=== PATIENT | female | born 1955 | race American Indian/Alaskan Native ===

== ENCOUNTER 2018-11-15 15:30 | Inpatient (IN) | payer MEDICARE ==
[2018-11-15 16:11] LABS: Basophils # (Auto) 0.1 K/mm3 (0.0-0.1); Basophils % (Auto) 1.4 % (0.0-1.8); Eosinophils % (Auto) 0.1 % (0.0-4.3); Hemoglobin 14.2 gm/dl (10.1-14.3); Lymphocytes % (Auto) 19.5 % (13.4-35.0); Mean Corpuscular HGB Conc 35 % (30-34); Mean Corpuscular Volume 90 fl (79-97); Monocytes # (Auto) 0.8 K/mm3 (0.0-0.8); Monocytes % (Auto) 7.7 % (0.0-7.3); Platelet Count 337 K/mm3 (140-440); Red Blood Count 4.55 M/mm3 (3.65-5.03); Red Cell Distribution Width 13.3 % (13.2-15.2)
--- NOTE | 2018-11-15 16:22 | Emergency Department Report ---
ED Shortness of Breath HPI - General Chief Complaint: Dyspnea/Respdistress Stated Complaint: HEART PATIENT/SOB Time Seen by Provider: 11/15/18 16:02 Source: patient Mode of arrival: Wheelchair Limitations: No Limitations - History of Present Illness Initial Comments: This is 61-year-old female that presents emergent complaints of dizziness, chest pain, shortness of breath and palpitations. Patient states is normal for 1 week. Patient states over this past week she's had 2 syncopal episodes. Patient states she has a history of ME and CHF. Patient is noncompliant with all of her medications. They states no medications taken this time is antidep ressant. Patient states she has nitroglycerin, nebs/inhaler, aspirin that she does not take. Patient states her shortness of breath is better with rest and worse with exertion. Patient states her chest pain is better with rest and worse with exertion. MD Complaint: shortness of breath, chest pain -: Sudden Severity: severe Pain Scale: 3 Quality: dull, aching Consistency: intermittent Improves With: oxygen, rest, upright position Worsens With: lying flat, exertion Known History Of: asthma, congestive heart failure Context: medication noncompliance Associated Symptoms: chest pain, pain with inspiration, cough, orhopnia, palpitations, syncope Treatments Prior to Arrival: none - Related Data Home Oxygen Therapy: No Home Medications Medication Instructions Recorded Confirmed Last Taken FLUoxetine HCL [Fluoxetine HCl] 40 mg PO DAILY 11/16/18 11/16/18 Unknown Allergies Allergy/AdvReac Type Severity Reaction Status Date / Time No Known Allergies Allergy Unverified 11/15/18 15:43 ED Review of Systems ROS: Stated complaint: HEART PATIENT/SOB Other details as noted in HPI Constitutional: denies: chills, fever Eyes: denies: eye pain, eye discharge, vision change ENT: denies: ear pain, throat pain Respiratory: shortness of breath, SOB with exertion, SOB at rest. denies: wheezing Cardiovascular: chest pain, palpitations Endocrine: no symptoms reported Gastrointestinal: denies: abdominal pain, nausea, diarrhea Genitourinary: denies: urgency, dysuria, discharge Musculoskeletal: denies: back pain, joint swelling, arthralgia Skin: denies: rash, lesions Neurological: vertigo. denies: headache, weakness, paresthesias Psychiatric: denies: anxiety, depression Hematological/Lymphatic: denies: easy bleeding, easy bruising ED Past Medical Hx - Past Medical History Previous Medical History?: Yes Hx Heart Attack/AMI: Yes (X2) Hx Asthma: Yes Additional medical history: HARD OF HEARING - Surgical History Past Surgical History?: Yes Additional Surgical History: HEART CATH - Family History Family history: no significant - Social History Smoking Status: Current Every Day Smoker Substance Use Type: None - Medications Home Medications: Home Medications Medication Instructions Recorded Confirmed Last Taken Type FLUoxetine HCL [Fluoxetine HCl] 40 mg PO DAILY 11/16/18 11/16/18 Unknown History ED Physical Exam - General Limitations: No Limitations General appearance: alert, in no apparent distress - Head Head exam: Present: atraumatic, normocephalic - Eye Eye exam: Present: normal appearance - ENT ENT exam: Present: mucous membranes dry - Neck Neck exam: Present: normal inspection - Respiratory Respiratory exam: Present: normal lung sounds bilaterally. Absent: respiratory distress - Cardiovascular Cardiovascular Exam: Present: regular rate, normal rhythm. Absent: systolic murmur, diastolic murmur, rubs, gallop - GI/Abdominal GI/Abdominal exam: Present: soft, normal bowel sounds - Extremities Exam Extremities exam: Present: normal inspection - Back Exam Back exam: Present: normal inspection - Neurological Exam Neurological exam: Present: alert, oriented X3 - Psychiatric Psychiatric exam: Present: normal affect, normal mood - Skin Skin exam: Present: warm, dry, intact, normal color. Absent: rash ED Course Vital Signs 11/15/18 11/15/18 11/15/18 15:38 16:22 16:30 Temperature 98.8 F Pulse Rate 121 H 117 H Respiratory 20 13 Rate Blood Pressure 159/102 169/106 O2 Sat by Pulse 98 99 99 Oximetry 11/15/18 11/15/18 11/15/18 16:46 17:00 19:08 Temperature Pulse Rate 110 H 113 H 110 H Respiratory 11 L 16 14 Rate Blood Pressure 169/106 169/106 169/106 O2 Sat by Pulse 100 99 Oximetry 11/15/18 11/15/18 11/15/18 19:16 19:45 20:00 Temperature Pulse Rate 101 H 104 H Respiratory 16 18 16 Rate Blood Pressure 169/106 139/98 O2 Sat by Pulse 99 100 99 Oximetry 11/15/18 11/15/18 11/15/18 20:16 20:18 20:20 Temperature Pulse Rate 108 H 106 H 107 H Respiratory 16 15 16 Rate Blood Pressure 139/98 139/98 139/98 O2 Sat by Pulse 99 99 99 Oximetry 11/15/18 11/15/18 11/15/18 20:22 20:24 20:26 Temperature Pulse Rate 107 H 106 H 107 H Respiratory 14 21 11 L Rate Blood Pressure 139/98 139/98 117/71 O2 Sat by Pulse 99 98 98 Oximetry 11/15/18 11/15/18 11/15/18 20:30 20:40 20:50 Temperature Pulse Rate 108 H 105 H 114 H Respiratory 15 21 10 L Rate Blood Pressure 117/71 117/71 117/71 O2 Sat by Pulse 98 99 98 Oximetry - Reevaluation(s) Reevaluation #1: discussed all results with patient. Patient voiced understanding of results. Patient admitted to the hospitalist service. Patient agrees with plan of care and admission. 11/15/18 17:59 - Consultations Consultation #1: Hospitalist consulted for admission. Hospital service to admit patient and assume care of patient. 11/15/18 18:06 ED Medical Decision Making - Lab Data Result diagrams: 11/15/18 16:00 11/15/18 16:00 - EKG Data -: EKG Interpreted by Me EKG shows normal: sinus rhythm, axis, intervals, QRS complexes, ST-T waves Rate: tachycardia - Radiology Data Radiology results: report reviewed, image reviewed interpreted by me: Chest x-ray normal limits Negative CTA for PE. Chest x-ray is normal. - Medical Decision Making is a 63-year-old female that presents emergency room multiple complaints. This complaints including chest pain, shortness of breath, dizziness, syncope. Patient's initial cardiac workup was negative. Patient's CT was negative. Patient's chest x-ray was negative. Patient's labs unremarkable except for hypokalemia and hyponatremia. Patient admitted to the hospitalist service for further evaluation and treatment. - Differential Diagnosis cp. acs. nstemi. sob. syncope. Critical Care Time: Yes Critical care attestation.: If time is entered above; I have spent that time in minutes in the direct care of this critically ill patient, excluding procedure time. Critical Care Time: 35 minutes ED Disposition Clinical Impression: SOB (shortness of breath), Dizziness, Hyponatremia, Hypokalemia Chest pain Qualifiers: Chest pain type: unspecified Qualified Code(s): R07.9 - Chest pain, unspecified Syncope Qualifiers: Syncope type: unspecified Qualified Code(s): R55 - Syncope and collapse Disposition: DC09 OP ADMIT IP TO THIS HOSP Is pt being admited?: Yes Does the pt Need Aspirin: No Condition: Critical Time of Disposition: 18:08
[2018-11-15 16:40] LABS: BUN/Creatinine Ratio 24; Blood Urea Nitrogen 12 mg/dL (7-17); Calcium 9.5 mg/dL (8.4-10.2); Hemolysis Index 2
[2018-11-15 16:53] LABS: Alanine Aminotransferase 13 units/L (7-56); Albumin 4.6 g/dL (3.9-5)
[2018-11-15 16:54] LABS: Bilirubin,Direct < 0.2 mg/dL (0-0.2)
--- NOTE | 2018-11-15 16:59 | XRay Report ---
FINAL REPORT EXAM: XR CHEST 1V AP HISTORY: Shortness of breath TECHNIQUE: Frontal chest radiograph. PRIORS: None. FINDINGS: Aortic calculi are seen. The left lateral costophrenic angle was not completely included on the image . The cardiomediastinal silhouette is normal. No focal consolidation. The lungs are hyperinflated. No pleural effusion. No pneumothorax. No acute osseous abnormality. IMPRESSION: No acute cardiopulmonary process. Findings of COPD.
--- NOTE | 2018-11-15 17:54 | Cat Scan Report ---
FINAL REPORT PROCEDURE: CT angiogram chest with contrast. TECHNIQUE: Computerized tomographic angiography of the chest was performed after the IV injection of iodinated nonionic contrast including image processing. The image data was postprocessed using 2-dim ensional multiplanar reformatted (MPR) and 3-dimensional (MIP and/or volume rendered) techniques. HISTORY: Shortness of breath, tachycardia. COMPARISON: No prior studies are available for comparison. FINDINGS: The trachea and central bronchi appear normal. There is a tiny focal opacity in the anterior portion of the right lower lobe. This is seen on image 203 of series 3. It may represent a tiny scar or tiny nodule. It measures 4.5 millimeters. It is of doubtful clinical significance. Follow-up imaging could be done to document stability. There is some minimal scarring versus subsegmental atelectasis in the lingula. The lungs are otherwise clear and well expanded. There are no signs of pneumonia. There are no pleural effusions. The thoracic aorta has a normal caliber without evidence of dissection. The pu lmonary arteries enhance normally. There are no filling defects to indicate pulmonary embolism. There is an enlarged lymph node mass in the pretracheal region. I am uncertain if this represents a single lymph node or 2 adjacent lymph nodes. The overall size is approximately 3.4 centimeters x 1.9 centim eters in cross-section. There is no definite additional adenopathy. This enlarged lymph node is nonsp ecific. Further evaluation should be considered. The heart size is normal. The adrenal glands are not enlarged. The thoracic skeleton appears intact. IMPRESSION: No evidence of pulmonary embolism. Small nodule versus small scar in the right lower lobe. Follow-up suggested. Enlarged mediastinal lymph node or lymph node mass in the pretracheal region. Further eval uation suggested.
--- NOTE | 2018-11-15 18:00 | History and Physical Report ---
History of Present Illness Chief complaint: i cant breathe, and my chest hurts too History of present illness: 63 YO Female with SC, Asthma, CHF, Nicotine Dependence, COPD, Medication Noncompliance presents to ED for evaluation. Pt states that she has experienced shortness of breath, chest palpitations, and pain in her chest over the past 1 week, with increasing frequency of symptoms over the past 2 days. Pt also re ports two episodes of syncope. Pt states that pain is 3-6/10, intermittent, dull in nature, associated with shortness of breath, worsened with exertion, relieved with rest. Pt acknowledges Orthopnea/PND, Decreased exercise tolerance, as well as high blood pressure. Past History Past Medical History: acute SC, COPD Past Surgical History: Other (heart cath) Social history: single, smoking Family history: no significant family history (reviewed) Medications and Allergies Allergies Allergy/AdvReac Type Severity Reaction Status Date / Time No Known Allergies Allergy Unverified 11/15/18 15:43 Review of Systems Constitutional: no weight loss, no weight gain, no fever, no chills Ears, nose, mouth and throat: no ear pain, no ear discharge, no tinnitis, no decreased hearing Breasts: no change in shape, no swelling Cardiovascular: chest pain, palpitations, syncope, shortness of breath, dyspnea on exertion, paroxysmal nocturnal dyspnea, high blood pressure, decreased exercise tolerance, no orthopnea Respiratory: no cough, no cough with sputum, no excessive sputum Gastrointestinal: no vomiting, no diarrhea, no constipation Genitourinary Female: no pelvic pain, no flank pain, no menorrhagia, no dysuria, no urinary frequency, no urgency Rectal: no pain, no incontinence, no bleeding Integumentary: no rash, no pruritis, no redness, no sores, no wounds Neurological: no transient paralysis, no paralysis, no weakness, no parathesias, no numbness Psychiatric: no anxiety, no memory loss, no change in sleep habits, no sleep disturbances, no insomnia, no hypersomnia, no change in appetite Endocrine: no cold intolerance, no heat intolerance, no polyphagia, no excessive thirst, no polydipsia, no polyuria Hematologic/Lymphatic: no easy bruising, no easy bleeding, no lymphadenopathy, no lymphedema Allergic/Immunologic: no urticaria, no allergic rhinitis, no wheezing, no persistent infections, no anaphylaxis, no angioedema Exam - Constitutional Vitals: Temp Pulse Resp BP Pulse Ox 98.8 F 113 H 16 169/106 99 11/15/18 15:38 11/15/18 17:00 11/15/18 17:00 11/15/18 17:00 11/15/18 17:00 General appearance: Present: mild distress - EENT Eyes: Present: PERRL ENT: hearing intact, clear oral mucosa - Neck Neck: Present: supple, normal ROM - Respiratory Respiratory effort: labored Respiratory: bilateral: diminished, rhonchi - Cardiovascular Heart Sounds: Present: S1 & S2. Absent: rub, click - Extremities Extremities: pulses symmetrical, No edema Peripheral Pulses: within normal limits - Abdominal General gastrointestinal: Present: soft, non-tender, non-distended, normal bowel sounds Female genitourinary: Present: normal - Integumentary Integumentary: Present: clear, warm, dry - Musculoskeletal Musculoskeletal: gait normal, strength equal bilaterally - Psychiatric Psychiatric: appropriate mood/affect, intact judgment & insight - Neurologic Neurologic: CNII-XII intact, moves all extremities Results - Labs CBC & Chem 7: 11/15/18 16:00 11/15/18 16:00 Labs: Abnormal lab results 11/15/18 11/15/18 Range/Units 16:00 16:00 MCHC 35 H (30-34) % [place] % (Auto) 7.7 H (0.0-7.3) % Seg Neutrophils % 71.3 H (40.0-70.0) % Sodium 128 L (137-145) mmol/L Potassium 3.4 L (3.6-5.0) mmol/L Chloride 86.6 L (98-107) mmol/L Carbon Dioxide 21 L (22-30) mmol/L Creatinine 0.5 L (0.7-1.2) mg/dL Glucose 136 H (65-100) mg/dL Assessment and Plan - Patient Problems (1) ACS (acute coronary syndrome) Current Visit: Yes Status: Acute Plan to address problem: Admit to telemetry, serial cardiac enzymes, ekg, telemetry, stress test. cardiology consulted in ED, morphine, supplemental oxygen, nitro, aspirin (2) CHF (congestive heart failure) Current Visit: Yes Status: Acute Qualifiers: Heart failure type: systolic Heart failure chronicity: acute Qualified Code(s): I50.21 - Acute systolic (congestive) heart failure Plan to address problem: Admit to telemetry, Echo, chest x ray, bnp, d dimer, cardiology consulted in ED, strict I/O, daily weight, monitor uop q shift (3) COPD with exacerbation Current Visit: Yes Status: Acute Plan to address problem: Supplemental oxygen, nebulizer therapy, NIPPV as clinically indicated, IV steroid therapy, IV antibiotic therapy (4) Nicotine dependence Current Visit: Yes Status: Acute Qualifiers: Nicotine product type: cigarettes Plan to address problem: Smoking cessation counseling, supportive care (5) DVT prophylaxis Current Visit: Yes Status: Acute Plan to address problem: SCD to BLE while in bed.
[2018-11-15] MEDS ORDERED: BABY ASPIRIN PO STA (19:03)
[2018-11-15] MEDS ORDERED: NITROSTAT SL PRN (19:03)
[2018-11-15] MEDS ORDERED: ZOFRAN IV PRN (19:03)
[2018-11-15] MEDS ORDERED: SODIUM CHLORIDE FLUSH SYRINGE 10 ML IV PRN ×2 (19:03)
[2018-11-15] MEDS ORDERED: TYLENOL PO PRN (19:03)
[2018-11-15] MEDS ORDERED: SOLU-Medrol IV ONE (19:55)
[2018-11-15 20:04] LABS: Chol/HDL Ratio 3.09 %
[2018-11-15] MEDS: PEPCID PO SCH (22:51)
[2018-11-15] MEDS: SODIUM CHLORIDE FLUSH SYRINGE 10 ML IV SCH (22:51)
[2018-11-15] MEDS: SOLU-Medrol IV SCH (22:51)
[2018-11-16] MEDS: MORPHINE IV PRN ×2 (04:30→11:03)
[2018-11-16] MEDS: PROVENTIL IH PRN (04:44)
[2018-11-16] MEDS: HABITROL TD SCH (09:22)
[2018-11-16] MEDS: XANAX PO PRN ×2 (09:22→21:27)
[2018-11-16] MEDS: SOLU-Medrol IV SCH ×2 (11:04→21:27)
[2018-11-16] MEDS: PEPCID PO SCH ×2 (11:04→21:27)
[2018-11-16 11:21] LABS: BUN/Creatinine Ratio 16; Blood Urea Nitrogen 8 mg/dL (7-17); Calcium 9.6 mg/dL (8.4-10.2); Hemolysis Index 16
--- NOTE | 2018-11-16 11:28 | Progress Note ---
Assessment and Plan /Atypical Chest pain - Patient with a long history of atypical chest pain, - prior extensive ischemic workup including cardiac catheterization were reportedly negative. - She declines any further ischemic cardiac workup stating that she feels too weak to walk on the treadmill, and does not like the pharmacologic stress test. Cardiology therefore recommended to manage conservatively. - place on PPI for possible GERD / Palpitations - we'll get an echocardiogram for left ventricular function assessment. Monitor at tele - she may benefit from outpatient event monitor if palpitations recur. /Hyponatremia, due to dehydration, repeat BMP in the am / hypokalemia, replete /Dvt Px, SCD Brief history: 63 YO Female with ME, ?CHF, Nicotine Dependence, COPD, Medication Noncompliance presents to ED as she has experienced shortness of breath, chest palpitations, and pain in her chest over the past 1 week, with increasing frequency of symptoms over the past 2 days. Subjective Date of service: 11/16/18 Interval history: Patient seen and examined cont to c/o chest pain, 2d echo pending Objective - Constitutional Vitals: Vital Signs - 12hr 11/15/18 11/16/18 11/16/18 23:38 04:50 07:17 Temperature 98.0 F 97.0 F L 97.9 F Pulse Rate 95 H 110 H 105 H Pulse Rate [ 110 H Anterior Bilateral Throughout] Respiratory 18 18 18 Rate Respiratory 22 Rate [Anterior Bilateral Throughout] Blood Pressure 131/85 95/73 98/61 O2 Sat by Pulse 99 98 97 Oximetry General appearance: Present: no acute distress, well-nourished - EENT Eyes: PERRL, EOM intact ENT: hearing intact, clear oral mucosa Ears: bilateral: normal - Neck Neck: supple, normal ROM - Respiratory Respiratory effort: normal Respiratory: bilateral: CTA - Cardiovascular Rhythm: regular Heart Sounds: Present: S1 & S2. Absent: gallop, rub Extremities: pulses intact, No edema, normal color, Full ROM - Gastrointestinal General gastrointestinal: Present: soft, non-tender, non-distended, normal bowel sounds - Integumentary Integumentary: clear, warm, dry - Musculoskeletal Musculoskeletal: 1, strength equal bilaterally - Neurologic Neurologic: moves all extremities - Psychiatric Psychiatric: memory intact, appropriate mood/affect, intact judgment & insight - Labs CBC & Chem 7: 11/15/18 16:00 11/16/18 10:26 Labs: Abnormal lab results 11/15/18 11/15/18 11/15/18 Range/Units 16:00 16:00 19:08 MCHC 35 H (30-34) % [place] % (Auto) 7.7 H (0.0-7.3) % Seg Neutrophils % 71.3 H (40.0-70.0) % Sodium 128 L (137-145) mmol/L Potassium 3.4 L (3.6-5.0) mmol/L Chloride 86.6 L (98-107) mmol/L Carbon Dioxide 21 L (22-30) mmol/L Creatinine 0.5 L (0.7-1.2) mg/dL Glucose 136 H (65-100) mg/dL HDL Cholesterol 62 H (40-59) mg/dL 11/16/18 Range/Units 10:26 MCHC (30-34) % [place] % (Auto) (0.0-7.3) % Seg Neutrophils % (40.0-70.0) % Sodium 136 L D (137-145) mmol/L Potassium (3.6-5.0) mmol/L Chloride 93.5 L (98-107) mmol/L Carbon Dioxide (22-30) mmol/L Creatinine 0.5 L (0.7-1.2) mg/dL Glucose 134 H (65-100) mg/dL HDL Cholesterol (40-59) mg/dL
[2018-11-16] MEDS: ZITHROMAX 500 MG in NACL 0.9% 250ML 250 ML IV SCH (11:29)
[2018-11-16] MEDS: SODIUM CHLORIDE FLUSH SYRINGE 10 ML IV SCH ×2 (11:30→21:27)
[2018-11-16] MEDS ORDERED: NON-FORMULARY (Fluoxetine Hcl [Fluoxetine Hcl] 40 MG) PO SCH (11:30)
[2018-11-16] MEDS: ASPIRIN PO SCH (12:02)
[2018-11-16] MEDS: PROzac PO SCH (12:02)
--- NOTE | 2018-11-16 13:25 | Consultation ---
History of Present Illness Consult date: 11/16/18 Consult reason: chest pain History of present illness: The patient is a 63-year-old woman with a history of chronic tobacco abuse, who presents to the hospital with complaints of one week intermittent palpitations associated with shortness of breath. She describes a sensation of "heart racing". There is no exertional chest pain, no syncope, no lower extremity edema. EKG here in the hospital some normal sinus rhythm with nonspecific ST changes. During her periods on telemetry, no significant tachycardia or bradycardia arrhythmias have been reported. She gives a history of extensive chest pain workup over the past several years, mostly at the [facility]. She describes several stress tests and echoes, and including at least one heart catheterization procedure. Following a heart cath procedure, she was told that her coronaries were completely "clean". Despite this, she still believes that her hospitalizations where due to "heart attacks". She is on no medications for coronary disease or other cardiac pathology. Past History Past Medical History: COPD Past Surgical History: Other (heart cath) Social history: single, smoking Family history: no significant family history (reviewed) Medications and Allergies Allergies Allergy/AdvReac Type Severity Reaction Status Date / Time No Known Allergies Allergy Unverified 11/15/18 15:43 Home Medications Medication Instructions Recorded Confirmed Last Taken Type FLUoxetine HCL [Fluoxetine HCl] 40 mg PO DAILY 11/16/18 11/16/18 Unknown History Active Meds: Active Medications Acetaminophen (Tylenol) 650 mg PO Q4H PRN PRN Reason: Pain MILD(1-3)/Fever >100.5/LANDRUM Albuterol (Proventil) 2.5 mg IH Q4H PRN PRN Reason: Shortness Of Breath Last Admin: 11/16/18 04:44 Dose: 2.5 mg Documented by: Albuterol/Ipratropium (Duoneb *Not For Prn Use*) 1 ampul IH Q6HRT RYLEY Alprazolam (Xanax) 0.25 mg PO Q8H PRN PRN Reason: Anxiety Last Admin: 11/16/18 09:22 Dose: 0.25 mg Documented by: Aspirin (Aspirin) 325 mg PO QDAY RYLEY Last Admin: 11/16/18 12:02 Dose: 325 mg Documented by: Atorvastatin Calcium (Lipitor) 40 mg PO QHS [facility] Famotidine (Pepcid) 10 mg PO BID [facility] Last Admin: 11/16/18 11:04 Dose: 10 mg Documented by: Fluoxetine HCl (Prozac) 40 mg PO QDAY [facility] Last Admin: 11/16/18 12:02 Dose: 40 mg Documented by: Azithromycin 500 mg/ Sodium (Chloride) 250 mls @ 250 mls/hr IV Q24HR [facility] Last Admin: 11/16/18 11:29 Dose: 250 mls/hr Documented by: Methylprednisolone Sodium Succinate (Solu-Medrol) 40 mg IV Q12HR [facility] Last Admin: 11/16/18 11:04 Dose: 40 mg Documented by: Morphine Sulfate (Morphine) 2 mg IV Q4H PRN PRN Reason: Pain , MODERATE Last Admin: 11/16/18 11:03 Dose: 2 mg Documented by: Nicotine (Habitrol) 21 mg TD QDAY [facility] Last Admin: 11/16/18 09:22 Dose: 21 mg Documented by: Nitroglycerin (Nitrostat) 0.4 mg SL Q5M PRN PRN Reason: Chest Pain Ondansetron HCl (Zofran) 4 mg IV Q8H PRN PRN Reason: Nausea And Vomiting Last Admin: 11/16/18 04:30 Dose: 4 mg Documented by: Sodium Chloride (Sodium Chloride Flush Syringe 10 Ml) 10 ml IV BID [facility] Last Admin: 11/16/18 11:30 Dose: 10 ml Documented by: Sodium Chloride (Sodium Chloride Flush Syringe 10 Ml) 10 ml IV PRN PRN PRN Reason: LINE FLUSH Review of Systems Cardiovascular: palpitations, shortness of breath, no chest pain, no orthopnea, no rapid/irregular heart beat, no edema, no syncope, no lightheadedness Physical Examination Vital Signs Temp Pulse Resp BP Pulse Ox 98.8 F 121 H 20 159/102 98 11/15/18 15:38 11/15/18 15:38 11/15/18 15:38 11/15/18 15:38 11/15/18 15:38 General appearance: no acute distress HEENT: Positive: PERRL Neck: Positive: neck supple Cardiac: Positive: Reg Rate and Rhythm Lungs: Positive: Decreased Breath Sounds Neuro: Positive: Grossly Intact Abdomen: Positive: Soft Female genitourinary: deferred Skin: Positive: Clear Extremities: Absent: edema Results 11/15/18 16:00 11/16/18 10:26 Cardiac Enzymes 11/15/18 Range/Units 16:00 AST 16 (5-40) units/L Lipids 11/15/18 Range/Units 19:08 Triglycerides 100 (2-149) mg/dL Cholesterol 192 (50-199) mg/dL HDL Cholesterol 62 H (40-59) mg/dL Cholesterol/HDL Ratio 3.09 % CBC 11/15/18 Range/Units 16:00 WBC 10.2 (4.5-11.0) K/mm3 RBC 4.55 (3.65-5.03) M/mm3 Hgb 14.2 (10.1-14.3) gm/dl Hct 41.0 (30.3-42.9) % Plt Count 337 (140-440) K/mm3 Lymph # 2.0 (1.2-5.4) K/mm3 [place] # 0.8 (0.0-0.8) K/mm3 Eos # 0.0 (0.0-0.4) K/mm3 Baso # 0.1 (0.0-0.1) K/mm3 Comprehensive Metabolic Panel 11/15/18 11/15/18 11/16/18 Range/Units 16:00 16:00 10:26 Sodium 128 L 136 L D (137-145) mmol/L Potassium 3.4 L 3.7 (3.6-5.0) mmol/L Chloride 86.6 L 93.5 L (98-107) mmol/L Carbon Dioxide 21 L 23 (22-30) mmol/L BUN 12 8 (7-17) mg/dL Creatinine 0.5 L 0.5 L (0.7-1.2) mg/dL Glucose 136 H 134 H (65-100) mg/dL Calcium 9.5 9.6 (8.4-10.2) mg/dL Direct Bilirubin < 0.2 (0-0.2) mg/dL Indirect Bilirubin 0.2 mg/dL AST 16 (5-40) units/L ALT 13 (7-56) units/L Alkaline Phosphatase 55 (35-129) units/L Total Protein 7.4 (6.3-8.2) g/dL Albumin 4.6 (3.9-5) g/dL EKG interpretations - Telemetry EKG Rhythm: Sinus Rhythm Assessment and Plan - Patient Problems (1) Chest pain Current Visit: Yes Status: Acute Qualifiers: Chest pain type: unspecified Qualified Code(s): R07.9 - Chest pain, unspecified Plan to address problem: Patient with a long history of atypical chest pain, prior extensive ischemic workup including cardiac catheterization were reportedly negative. She declines any further ischemic cardiac workup stating that she feels too weak to walk on the treadmill, and does not like the pharmacologic stress test. We will therefore manage conservatively. (2) Palpitations Current Visit: Yes Status: Acute Plan to address problem: Patient's additional complaint of palpitations associated with shortness of breath, we'll get an echocardiogram for left ventricular function assessment. Otherwise, she may benefit from outpatient event monitor if palpitations recur.
[2018-11-16] MEDS: DUONEB *Not for PRN Use IH SCH ×2 (13:45→20:14)
--- NOTE | 2018-11-16 18:13 | Cat Scan Report ---
FINAL REPORT EXAM: CT HEAD/BRAIN WO CON HISTORY: syncope, HAD CTA CHEST W/CONTRAST LAST NIGHT. WAITED 24 HOURS TO DO HEAD. TECHNIQUE: CT of the head was performed without intravenous contrast. PRIORS: None. FINDINGS: The ventricles are normal in shape and position. The ventricles are nondilated. No intracranial hemo rrhage, mass, mass effect, midline shift or evidence of acute ischemic infarct. The basilar cisterns are patent. The paranasal sinuses are clear. The extracranial soft tissues demonstrate no abnormality. The calvar ium is intact. The orbits are intact. The mastoid air cells are clear. IMPRESSION: No acute intracranial abnormality.
[2018-11-17] MEDS: DUONEB *Not for PRN Use IH SCH ×4 (01:02→20:47)
[2018-11-17] MEDS: HABITROL TD SCH (10:30)
[2018-11-17] MEDS: SOLU-Medrol IV SCH ×2 (10:30→22:34)
[2018-11-17] MEDS: PEPCID PO SCH ×2 (10:30→22:33)
[2018-11-17] MEDS: PROzac PO SCH (10:30)
[2018-11-17] MEDS: ASPIRIN PO SCH (10:30)
[2018-11-17] MEDS: SODIUM CHLORIDE FLUSH SYRINGE 10 ML IV SCH ×2 (10:31→22:35)
[2018-11-17] MEDS: ZITHROMAX 500 MG in NACL 0.9% 250ML 250 ML IV SCH (10:40)
--- NOTE | 2018-11-17 10:57 | Progress Note ---
Addendum entered and electronically signed by NICOLLE OWENS MD 11/17/18 14:41: Conservative cardiac management, no further cardiac workup, okay for cardiac dis charge. Original Note: Assessment and Plan Atypical chest pain, prior extensive ischemic workup including cardiac catheterization were reportedly negative. Palpitations no arrhythmias seen on telemetry thus far Tobacco abuse Echocardiogram reports a normal left ventricular systolic function, ejection 60- 65%. Plan: Patient declines any further ischemic cardiac workup and does not like the pharmacologic stress test. We will, therefore, manage conservatively. Otherwise, she may benefit from outpatient event monitor if palpitations recur. Subjective Date of service: 11/17/18 Interval history: No distress noted. No cardiac complaints. No events on telemetry. Objective Vital Signs Temp Pulse Pulse Resp Resp BP Pulse Ox 11/17/18 08:35 98.5 F 128 H 18 120/77 95 11/17/18 08:15 116 H 18 11/17/18 08:03 128 H 18 98 11/17/18 04:09 98.9 F 114 H 18 124/85 99 11/17/18 01:08 118 H 18 11/17/18 01:01 110 H 18 11/16/18 23:20 98.5 F 107 H 18 122/69 94 11/16/18 22:00 18 11/16/18 20:24 120 H 18 97 11/16/18 20:14 118 H 18 11/16/18 20:07 98.9 F 115 H 18 124/86 95 11/16/18 20:00 116 H 11/16/18 15:07 98.3 F 114 H 20 142/83 98 11/16/18 13:46 109 H 18 11/16/18 12:00 103 H - Physical Examination General: No Apparent Distress HEENT: Positive: PERRL Cardiac: Positive: Reg Rate and Rhythm Neuro: Positive: Grossly Intact Abdomen: Positive: Soft Skin: Positive: Clear Extremities: Absent: edema - Labs and Meds Comprehensive Metabolic Panel 11/16/18 Range/Units 10:26 Sodium 136 L D (137-145) mmol/L Potassium 3.7 (3.6-5.0) mmol/L Chloride 93.5 L (98-107) mmol/L Carbon Dioxide 23 (22-30) mmol/L BUN 8 (7-17) mg/dL Creatinine 0.5 L (0.7-1.2) mg/dL Glucose 134 H (65-100) mg/dL Calcium 9.6 (8.4-10.2) mg/dL
[2018-11-17] MEDS: PROVENTIL IH PRN (11:50)
--- NOTE | 2018-11-17 15:49 | Discharge Summary ---
Providers - Providers Date of Admission: 11/15/18 19:03 Date of discharge: 11/17/18 Attending physician: BRANDY LOCKE 11/15/18 Consult to Cardiac Rehabilitation [CONS] Routine Reason For Exam: Phase I 11/15/18 19:04 Consult to Cardiology [CONS] Routine Consulting Provider: NICOLLE OWENS Reason For Exam: acs Primary care physician: ERLINDA BENTON Hospitalization Condition: Critical Hospital course: Brief history: 63 YO Female with [place], ?CHF, Nicotine Dependence, COPD, Medication Noncompliance presents to ED as she has experienced shortness of breath, chest palpitations, and pain in her chest over the past 1 week, with increasing frequency of symptoms over the past 2 days. Discharge diagnosis and management: /Atypical Chest pain - Patient with a long history of atypical chest pain, - prior extensive ischemic workup including cardiac catheterization were reportedly negative. - She declines any further ischemic cardiac workup stating that she feels too weak to walk on the treadmill, and does not like the pharmacologic stress test. Cardiology therefore recommended to manage conservatively. - place on PPI for possible GERD / Palpitations - we'll get an echocardiogram for left ventricular function assessment. Monitor at tele - she may benefit from outpatient event monitor if palpitations recur. /Hyponatremia, due to dehydration, repeat BMP in the am / hypokalemia, replete / h/o Asthma, not in exacerbation - last episode many years ago /Dvt Px, SCD Disposition: -01 TO HOME OR SELFCARE Time spent for discharge: 34 minutes Exam - Constitutional Vitals: Temp Pulse Resp BP Pulse Ox 98.5 F 125 H 18 120/77 96 11/17/18 08:35 11/17/18 12:06 11/17/18 12:06 11/17/18 08:35 11/17/18 11:54 Plan Follow up with: SALINA WATKINS MD [Staff Physician] - 7 Days
--- NOTE | 2018-11-17 15:50 | Progress Note ---
Assessment and Plan / Mediastinal lymph node mass?? - noted on CT chest - will consult hematology /Atypical Chest pain - Patient with a long history of atypical chest pain, - prior extensive ischemic workup including cardiac catheterization were reportedly negative. - She declines any further ischemic cardiac workup stating that she feels too weak to walk on the treadmill, and does not like the pharmacologic stress test. Cardiology therefore recommended to manage conservatively. - placed on PPI for possible GERD / Palpitations - preserved Ef on 2d echo. Monitor at tele - she may benefit from outpatient event monitor if palpitations recur. /Hyponatremia, due to dehydration, follow bmp / hypokalemia, replete / COPD with acute exacerbation -cont nebs, tapering steroid /Tobacco abuse, smokes 2ppd, placed on nicotine patch /Dvt Px, SCD Brief history: 63 YO Female with [place], ?CHF, Nicotine Dependence, COPD, Medication Noncompliance presents to ED as she has experienced shortness of breath, chest palpitations, and pain in her chest over the past 1 week, with increasing frequency of symptoms over the past 2 days. Physical exam: General appearance: Present: no acute distress, well-nourished - EENT Eyes: PERRL, EOM intact ENT: hearing intact, clear oral mucosa Ears: bilateral: normal - Neck Neck: supple, normal ROM - Respiratory Respiratory effort: normal Respiratory: bilateral: diminished b/l - Cardiovascular Rhythm: regular Heart Sounds: Present: S1 & S2. Absent: gallop, rub Extremities: pulses intact, No edema, normal color, Full ROM - Gastrointestinal General gastrointestinal: Present: soft, non-tender, non-distended, normal bowel sounds - Integumentary Integumentary: clear, warm, dry - Musculoskeletal Musculoskeletal: 1, strength equal bilaterally - Neurologic Neurologic: moves all extremities - Psychiatric Psychiatric: memory intact, appropriate mood/affect, intact judgment & insight Subjective Date of service: 11/17/18 Interval history: Patient seen and examined denies any chest pain, SOB improved, but still has difficulty with exertion states feeling well Objective - Constitutional Vitals: Vital Signs - 12hr 11/17/18 11/17/18 11/17/18 04:09 08:03 08:15 Temperature 98.9 F Pulse Rate 114 H Pulse Rate [ 128 H 116 H Anterior Bilateral Throughout] Respiratory 18 Rate Respiratory 18 18 Rate [Anterior Bilateral Throughout] Blood Pressure 124/85 O2 Sat by Pulse 99 98 Oximetry 11/17/18 11/17/18 11/17/18 08:35 11:51 11:54 Temperature 98.5 F Pulse Rate 128 H Pulse Rate [ 120 H Anterior Bilateral Throughout] Respiratory 18 Rate Respiratory 20 Rate [Anterior Bilateral Throughout] Blood Pressure 120/77 O2 Sat by Pulse 95 96 Oximetry 11/17/18 12:06 Temperature Pulse Rate Pulse Rate [ 125 H Anterior Bilateral Throughout] Respiratory Rate Respiratory 18 Rate [Anterior Bilateral Throughout] Blood Pressure O2 Sat by Pulse Oximetry - Labs CBC & Chem 7: 11/15/18 16:00 11/16/18 10:26
[2018-11-17] MEDS: COREG PO SCH (22:33)
[2018-11-17] MEDS: XANAX PO PRN (22:54)
[2018-11-18] MEDS: DUONEB *Not for PRN Use IH SCH ×5 (02:29→20:28)
[2018-11-18] MEDS: PROVENTIL IH PRN (05:29)
[2018-11-18] MEDS: XANAX PO PRN ×3 (06:47→22:30)
[2018-11-18] MEDS: PROzac PO SCH (10:55)
[2018-11-18] MEDS: ASPIRIN PO SCH (10:56)
[2018-11-18] MEDS: PEPCID PO SCH ×2 (10:56→22:30)
[2018-11-18] MEDS: COREG PO SCH ×2 (10:57→22:30)
[2018-11-18] MEDS: HABITROL TD SCH (10:57)
[2018-11-18] MEDS ORDERED: DELTASONE PO SCH (11:00)
[2018-11-18] MEDS: SODIUM CHLORIDE FLUSH SYRINGE 10 ML IV SCH ×2 (11:01→22:34)
[2018-11-18] MEDS: ZITHROMAX 500 MG in NACL 0.9% 250ML 250 ML IV SCH (11:08)
--- NOTE | 2018-11-18 15:42 | Progress Note ---
Assessment and Plan / Mediastinal lymph node mass?? - noted on CT chest - incidental finding - Consulted hematology, will follow recommendation /anxiety and ? psychosis - having hallucination per RN, stop steroid, consult psych /Atypical Chest pain - reason fro admission - Patient with a long history of atypical chest pain, - prior extensive ischemic workup including cardiac catheterization were reportedly negative. - She declines any further ischemic cardiac workup stating that she feels too weak to walk on the treadmill, and does not like the pharmacologic stress test. Cardiology therefore recommended to manage conservatively. - placed on PPI for possible GERD / Palpitations - preserved Ef on 2d echo. Monitor at tele - she may benefit from outpatient event monitor if palpitations recur. /Hyponatremia, due to dehydration, follow bmp / hypokalemia, replete / COPD with acute exacerbation, improving -cont nebs, /Tobacco abuse, smokes 2ppd, placed on nicotine patch /Dvt Px, SCD Brief history: 63 YO Female with [place], ?CHF, Nicotine Dependence, COPD, Medication Noncompliance presents to ED as she has experienced shortness of breath, chest palpitations, and pain in her chest over the past 1 week, with increasing frequency of symptoms over the past 2 days. Physical exam: General appearance: Present: no acute distress, well-nourished - EENT Eyes: PERRL, EOM intact ENT: hearing intact, clear oral mucosa Ears: bilateral: normal - Neck Neck: supple, normal ROM - Respiratory Respiratory effort: normal Respiratory: bilateral: diminished b/l - Cardiovascular Rhythm: regular Heart Sounds: Present: S1 & S2. Absent: gallop, rub Extremities: pulses intact, No edema, normal color, Full ROM - Gastrointestinal General gastrointestinal: Present: soft, non-tender, non-distended, normal bowel sounds - Integumentary Integumentary: clear, warm, dry - Musculoskeletal Musculoskeletal: 1, strength equal bilaterally - Neurologic Neurologic: moves all extremities - Psychiatric Psychiatric: memory intact, no appropriate mood/affect, no judgment & insight Subjective Date of service: 11/18/18 Interval history: Patient seen and examined denies any chest pain, SOB improved, states she is allergic to this hospital room, sitting on chair near the door - "I need free air with my oxygen" Objective - Constitutional Vitals: Vital Signs - 12hr 11/18/18 11/18/18 11/18/18 04:00 04:35 05:00 Temperature 98.7 F Pulse Rate 104 H 104 H Pulse Rate [ 110 H Anterior Bilateral Throughout] Pulse Rate [ Bilateral] Respiratory 16 Rate Respiratory 20 Rate [Anterior Bilateral Throughout] Respiratory Rate [Bilateral ] Blood Pressure 102/76 Blood Pressure [Right] O2 Sat by Pulse 99 Oximetry 11/18/18 11/18/18 11/18/18 07:58 10:00 10:02 Temperature 98.3 F Pulse Rate 113 H Pulse Rate [ 118 H Anterior Bilateral Throughout] Pulse Rate [ 120 H Bilateral] Respiratory 18 Rate Respiratory 24 Rate [Anterior Bilateral Throughout] Respiratory 18 Rate [Bilateral ] Blood Pressure 139/93 Blood Pressure [Right] O2 Sat by Pulse 99 98 Oximetry 11/18/18 11/18/18 10:57 12:00 Temperature 98.4 F Pulse Rate 114 H 112 H Pulse Rate [ Anterior Bilateral Throughout] Pulse Rate [ Bilateral] Respiratory 20 Rate Respiratory Rate [Anterior Bilateral Throughout] Respiratory Rate [Bilateral ] Blood Pressure Blood Pressure 140/65 [Right] O2 Sat by Pulse 97 Oximetry - Labs CBC & Chem 7: 11/15/18 16:00 11/16/18 10:26
--- NOTE | 2018-11-18 16:11 | Event Note ---
Date: 11/17/18 [id number]
[2018-11-19] MEDS: DUONEB *Not for PRN Use IH SCH ×4 (02:02→20:59)
[2018-11-19] MEDS: XANAX PO PRN ×2 (05:06→23:24)
--- NOTE | 2018-11-19 06:32 | Consultation ---
REFERRING PHYSICIAN: Victoria Evangelista MD REASON FOR CONSULTATION: Intrathoracic lymphadenopathy. HISTORY OF PRESENT ILLNESS: I saw the patient, a 63-year-old female with past history of NC, asthma, CHF, and nicotine dependence COPD, medication noncompliance, come to the hospital. The patient says that she was having shortness of breath, chest discomfort, palpitations for a few days with increasing symptoms over the last 2 days. There is a mention of 2 episodes of syncope. During this admission, CT chest had shown intrathoracic enlarged mediastinal lymph nodes/pretracheal area. No PE. I have been asked to evaluate the patient for this. PAST MEDICAL HISTORY: NC, COPD. PAST SURGICAL HISTORY: Cardiac catheterization. SOCIAL HISTORY: History of smoking present. FAMILY HISTORY: Noncontributory. ALLERGIES: None. REVIEW OF SYSTEMS: No weight loss. No ear discharge. History of chest pain, palpitation, syncope, shortness of breath present. No cough. No vomiting. No vaginal bleed. PHYSICAL EXAMINATION: VITAL SIGNS: Temperature 98, pulse 109, respirations 12, BP 110/77. HEENT: No pallor, no icterus. NECK: No neck lymph nodes. HEART: S1, S2. LUNGS: Clear to auscultation. ABDOMEN: Soft. EXTREMITIES: No calf tenderness. NEUROLOGIC: Alert, awake. LABORATORY DATA: White cell 10, hemoglobin 14, MCV 90, platelet 337. D-dimer 153. Potassium 3.4, creatinine 0.5, calcium 9.5, bilirubin 0.4. CT chest, enlarged lymph nodes in the pretracheal region. It is not clear if this is 1 or 2 adjacent lymph nodes. Overall size is 3.4 cm x 1.9 cm. ASSESSMENT AND PLAN: Admitted with chest pain, shortness of breath, palpitations being investigated. 1. A 3.4 cm lymphadenopathy in a patient with a history of smoking. This could be reactive or neoplastic. Would need more investigation. It is not clear if this is amenable to bronchoscopic biopsy with its central location. The option also would be to do outpatient PET CT to see if there is activity in those lymph nodes. CT surgery evaluation is an option. 3. History of chronic obstructive pulmonary disease exacerbation. 4. History of being treated for possible congestive heart failure/chronic obstructive pulmonary disease. 5. Electrolyte issues. JOB# [id number] DAMARIS/HENNY
--- NOTE | 2018-11-19 07:33 | Hem/Onc Progress Note ---
Assessment and Plan Admitted with chest pain, shortness of breath, palpitations being investigated. 1. A 3.4 cm lymphadenopathy in a patient with a history of smoking. This could be reactive or neoplastic. Would need more investigation. It is not clear if this is amenable to bronchoscopic biopsy with its central location. The option also would be to do outpatient PET CT to see if there is activity in those lymph nodes. CT surgery evaluation is an option. 3. History of chronic obstructive pulmonary disease exacerbation. 4. History of being treated for possible congestive heart failure/chronic obstructive pulmonary disease. 5. Electrolyte issues. 11/19 feeling better - pulm consult will help Subjective Date of service: 11/19/18 Principal diagnosis: intra thoracic LN Interval history: breathing better Objective - Constitutional Vitals: Last Vital Signs Temp 98.2 F 11/19/18 04:17 Pulse 72 11/19/18 04:00 Resp 12 11/19/18 04:17 BP 110/75 11/19/18 04:17 Pulse Ox 97 11/19/18 04:00 Pain Intensity (0-10): denies any pain General appearance: no acute distress Performance status: 3-limited selfcare - EENT Eyes: EOM intact ENT: other (hard of hearing) Lymph node exam: negative cervical - Neck Neck: normal ROM - Respiratory Respiratory effort: Positive: normal Respiratory: bilateral: CTA - Cardiovascular Heart Sounds: Present: S1 & S2 Extremities: No edema - Gastrointestinal General gastrointestinal: Present: soft, non-tender Rectal Exam: deferred - Genitourinary Female genitourinary: Present: deferred - Musculoskeletal Musculoskeletal: strength equal bilaterally - Neurologic Neurologic: moves all extremities Medications & Allergies - Medications Allergies/Adverse Reactions: Allergies No Known Allergies Allergy (Unverified 11/15/18 15:43) Home Medications: Home Medications Medication Instructions Recorded Confirmed Last Taken Type FLUoxetine HCL [Fluoxetine HCl] 40 mg PO DAILY 11/16/18 11/16/18 Unknown History Active Medications: Generic Name Dose Route Start Last Admin Trade Name Freq PRN Reason Stop Dose Admin Acetaminophen 650 mg 11/15/18 19:03 11/18/18 22:29 Tylenol PO 650 mg Q4H PRN Administration Pain MILD(1-3)/Fever >100.5/LANDRUM Albuterol 2.5 mg 11/15/18 19:03 11/18/18 05:29 Proventil IH 2.5 mg Q4H PRN Administration Shortness Of Breath Albuterol/Ipratropium 1 ampul 11/16/18 14:00 11/19/18 02:02 Duoneb *Not For Prn Use* IH 1 ampul Q6HRT RYLEY Administration Alprazolam 0.25 mg 11/16/18 08:22 11/19/18 05:06 Xanax PO 0.25 mg Q8H PRN Administration Anxiety Aspirin 325 mg 11/16/18 12:00 11/18/18 10:56 Aspirin PO 325 mg QDAY RYLEY Administration Atorvastatin Calcium 40 mg 11/16/18 22:00 11/18/18 22:31 Lipitor PO 40 mg QHS RYLEY Administration Azithromycin 500 mg 11/19/18 10:00 Zithromax PO QDAY RYLEY Carvedilol 3.125 mg 11/17/18 22:00 11/18/18 22:30 Coreg PO 3.125 mg BID RYLEY Administration Famotidine 10 mg 11/15/18 22:00 11/18/18 22:30 Pepcid PO 10 mg BID RYLEY Administration Fluoxetine HCl 40 mg 11/16/18 11:45 11/18/18 10:55 Prozac PO 40 mg QDAY RYLEY Administration Morphine Sulfate 2 mg 11/15/18 19:09 11/16/18 11:03 Morphine IV 2 mg Q4H PRN Administration Pain , MODERATE Nicotine 21 mg 11/16/18 10:00 11/18/18 10:57 Habitrol TD 21 mg QDAY RYLEY Administration Nitroglycerin 0.4 mg 11/15/18 19:03 Nitrostat SL Q5M PRN Chest Pain Ondansetron HCl 4 mg 11/15/18 19:03 11/16/18 04:30 Zofran IV 4 mg Q8H PRN Administration Nausea And Vomiting Sodium Chloride 10 ml 11/15/18 22:00 11/18/18 22:34 Sodium Chloride Flush Syringe 10 Ml IV 10 ml BID RYLEY Administration Sodium Chloride 10 ml 11/15/18 19:03 Sodium Chloride Flush Syringe 10 Ml IV PRN PRN LINE FLUSH
[2018-11-19] MEDS ORDERED: SOLU-Medrol IV SCH (10:00)
[2018-11-19] MEDS: PEPCID PO SCH ×2 (10:16→22:50)
[2018-11-19] MEDS: ASPIRIN PO SCH (10:16)
[2018-11-19] MEDS: PROzac PO SCH (10:16)
[2018-11-19] MEDS: COREG PO SCH ×2 (10:16→22:50)
[2018-11-19] MEDS: HABITROL TD SCH (10:16)
[2018-11-19] MEDS: ZITHROMAX PO SCH (10:17)
[2018-11-19] MEDS: SODIUM CHLORIDE FLUSH SYRINGE 10 ML IV SCH ×2 (10:21→22:50)
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
--- NOTE | 2018-11-19 18:14 | Progress Note ---
Assessment and Plan / Mediastinal lymph node mass?? - noted on CT chest - incidental finding - Consulted hematology, likely reactive - will need outpt follow up /anxiety and ? psychosis - having hallucination and paranoia, stopped steroid, consulted psych - cont Prozac 40mg po QAM depression/anxiety and Xanax 0.25mg po Q 8hours PRN anxiety /Atypical Chest pain - reason fro admission - Patient with a long history of atypical chest pain, - prior extensive ischemic workup including cardiac catheterization were reportedly negative. - She declines any further ischemic cardiac workup stating that she feels too weak to walk on the treadmill, and does not like the pharmacologic stress test. Cardiology therefore recommended to manage conservatively. - placed on PPI for possible GERD / Palpitations - preserved Ef on 2d echo. Monitor at tele - she may benefit from outpatient event monitor if palpitations recur. /Hyponatremia, due to dehydration, follow bmp / hypokalemia, replete / COPD with acute exacerbation, improving -cont nebs, /Tobacco abuse, smokes 2ppd, placed on nicotine patch /Dvt Px, SCD Disposition: when clears by psych Brief history: 63 YO Female with NC, ?CHF, Nicotine Dependence, COPD, Medication Noncompliance presents to ED as she has experienced shortness of breath, chest palpitations, and pain in her chest over the past 1 week, with increasing frequency of sympt oms over the past 2 days. Physical exam: General appearance: Present: no acute distress, well-nourished - EENT Eyes: PERRL, EOM intact ENT: hearing intact, clear oral mucosa Ears: bilateral: normal - Neck Neck: supple, normal ROM - Respiratory Respiratory effort: normal Respiratory: bilateral: diminished b/l - Cardiovascular Rhythm: regular Heart Sounds: Present: S1 & S2. Absent: gallop, rub Extremities: pulses intact, No edema, normal color, Full ROM - Gastrointestinal General gastrointestinal: Present: soft, non-tender, non-distended, normal bowel sounds - Integumentary Integumentary: clear, warm, dry - Musculoskeletal Musculoskeletal: 1, strength equal bilaterally - Neurologic Neurologic: moves all extremities - Psychiatric Psychiatric: memory intact, no appropriate mood/affect, no judgment & insight Subjective Date of service: 11/19/18 Principal diagnosis: intra thoracic LN Interval history: Patient seen and examined denies any chest pain, SOB improved, states feeling lot better today, appears less paraniod Objective - Constitutional Vitals: Vital Signs - 12hr 11/19/18 11/19/18 11/19/18 07:51 08:01 08:38 Temperature 99.0 F Pulse Rate 104 H Pulse Rate [ 108 H 104 H Bilateral] Respiratory 18 Rate Respiratory 18 18 Rate [Bilateral ] Blood Pressure 128/90 O2 Sat by Pulse 98 Oximetry 11/19/18 11/19/18 11/19/18 09:11 10:16 12:48 Temperature Pulse Rate 114 H Pulse Rate [ Bilateral] Respiratory Rate Respiratory Rate [Bilateral ] Blood Pressure 140/93 O2 Sat by Pulse 98 Oximetry 11/19/18 11/19/18 11/19/18 15:07 15:17 17:36 Temperature Pulse Rate 107 H Pulse Rate [ 99 H 102 H Bilateral] Respiratory Rate Respiratory 18 18 Rate [Bilateral ] Blood Pressure 141/95 O2 Sat by Pulse 97 Oximetry - Labs CBC & Chem 7: 11/15/18 16:00 11/16/18 10:26
--- NOTE | 2018-11-19 19:26 | Consultation ---
History of Present Illness Consult date: 11/19/18 Reason for consult: dyspnea, COPD History of present illness: PULMONARY AND CRITICAL CARE CONSULTATION. DR. LOERA THANK YOU FOR ASKING US TO PARTICIPATE IN THE CARE OF THIS PATIENT. 63 YO Female with NH, Asthma, CHF, Nicotine Dependence, COPD, Medication Noncompliance presents to ED for evaluation. Pt states that she has experienced shortness of breath, chest palpitations, and pain in her chest over the past 1 week, with increasing frequency of symptoms over the past 2 days. Pt also reports two episodes of syncope. Pt states that pain is 3-6/10, intermittent, dull in nature, associated with shortness of breath, worsened with exertion, relieved with rest. Pt acknowledges Orthopnea/PND, Decreased exercise tolerance. Patient has history of smoking for many years 1 pack a day. Lately she is smoking less than 10 cigaretts a day.Counselled her to stop smoking. Denies alcohol or drug abuse. 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 She also says allergic to certain foods but she can not name them.Denies allergies to the medication. Patient says in the past. Has no children. Patient says breathing better compare she came in to the hospital Patient is on 3 litres O2. O2 saturation 97%. Chest xray reported: No acute cardiopulmonary process. Findings of COPD. Angio CT of chest reported:No evidence of pulmonary embolism. Small nodule versus small scar in the right lower lobe. Follow- up suggested. Enlarged mediastinal lymph node or lymph node mass in the pretracheal region. Further evaluation suggested. Past History Past Medical History: COPD Past Surgical History: Other (heart cath) Social history: single, smoking Family history: no significant family history (reviewed) Medications and Allergies Allergies Allergy/AdvReac Type Severity Reaction Status Date / Time No Known Allergies Allergy Unverified 11/15/18 15:43 Home Medications Medication Instructions Recorded Confirmed Last Taken Type FLUoxetine HCL [Fluoxetine HCl] 40 mg PO DAILY 11/16/18 11/16/18 Unknown History Active Meds: Active Medications Acetaminophen (Tylenol) 650 mg PO Q4H PRN PRN Reason: Pain MILD(1-3)/Fever >100.5/LANDRUM Last Admin: 11/18/18 22:29 Dose: 650 mg Documented by: Albuterol (Proventil) 2.5 mg IH Q4H PRN PRN Reason: Shortness Of Breath Last Admin: 11/18/18 05:29 Dose: 2.5 mg Documented by: Albuterol/Ipratropium (Duoneb *Not For Prn Use*) 1 ampul IH Q6HRT [facility] Last Admin: 11/19/18 15:07 Dose: 1 ampul Documented by: Alprazolam (Xanax) 0.25 mg PO Q8H PRN PRN Reason: Anxiety Last Admin: 11/19/18 05:06 Dose: 0.25 mg Documented by: Aspirin (Aspirin) 325 mg PO QDAY [facility] Last Admin: 11/19/18 10:16 Dose: 325 mg Documented by: Atorvastatin Calcium (Lipitor) 40 mg PO QHS [facility] Last Admin: 11/18/18 22:31 Dose: 40 mg Documented by: Azithromycin (Zithromax) 500 mg PO QDAY [facility] Last Admin: 11/19/18 10:17 Dose: 500 mg Documented by: Carvedilol (Coreg) 3.125 mg PO BID [facility] Last Admin: 11/19/18 10:16 Dose: 3.125 mg Documented by: Famotidine (Pepcid) 10 mg PO BID [facility] Last Admin: 11/19/18 10:16 Dose: 10 mg Documented by: Fluoxetine HCl (Prozac) 40 mg PO QDAY [facility] Last Admin: 11/19/18 10:16 Dose: 40 mg Documented by: Morphine Sulfate (Morphine) 2 mg IV Q4H PRN PRN Reason: Pain , MODERATE Last Admin: 11/16/18 11:03 Dose: 2 mg Documented by: Nicotine (Habitrol) 21 mg TD QDAY [facility] Last Admin: 11/19/18 10:16 Dose: 21 mg Documented by: Nitroglycerin (Nitrostat) 0.4 mg SL Q5M PRN PRN Reason: Chest Pain Ondansetron HCl (Zofran) 4 mg IV Q8H PRN PRN Reason: Nausea And Vomiting Last Admin: 11/16/18 04:30 Dose: 4 mg Documented by: Sodium Chloride (Sodium Chloride Flush Syringe 10 Ml) 10 ml IV BID [facility] Last Admin: 11/19/18 10:21 Dose: 10 ml Documented by: Sodium Chloride (Sodium Chloride Flush Syringe 10 Ml) 10 ml IV PRN PRN PRN Reason: LINE FLUSH Review of Systems All systems: negative Physical Examination Vital signs: Vital Signs Temp Pulse Resp BP Pulse Ox 98.8 F 121 H 20 159/102 98 11/15/18 15:38 11/15/18 15:38 11/15/18 15:38 11/15/18 15:38 11/15/18 15:38 Results - Laboratory Findings CBC and BMP: 11/15/18 16:00 11/16/18 10:26 PT/INR, D-dimer D-Dimer 153.04 ng/mlDDU (0-234) 11/15/18 16:32 Abnormal lab findings: Abnormal Labs 11/15/18 11/15/18 11/15/18 16:00 16:00 19:08 MCHC 35 H [place] % (Auto) 7.7 H Seg Neutrophils % 71.3 H Sodium 128 L Potassium 3.4 L Chloride 86.6 L Carbon Dioxide 21 L Creatinine 0.5 L Glucose 136 H HDL Cholesterol 62 H 11/16/18 10:26 MCHC [place] % (Auto) Seg Neutrophils % Sodium 136 L D Potassium Chloride 93.5 L Carbon Dioxide Creatinine 0.5 L Glucose 134 H HDL Cholesterol - Diagnostic Findings Chest x-ray: report reviewed (No acute cardiopulmonary changes. Changes of COPD), image reviewed Assessment and Plan 63 YO Female with NH, Asthma, CHF, Nicotine Dependence, COPD, Medication Nonco mpliance presents to ED for evaluation. Pt states that she has experienced shortness of breath, chest palpitations, and pain in her chest over the past 1 week, with increasing frequency of symptoms over the past 2 days. Pt also reports two episodes of syncope. Pt states that pain is 3-6/10, intermittent, dull in nature, associated with shortness of breath, worsened with exertion, relieved with rest. Pt acknowledges Orthopnea/PND, Decreased exercise tolerance. Patient has history of smoking for many years 1 pack a day. Lately she is smoking less than 10 cigaretts a day.Counselled her to stop smoking. Denies alcohol or drug abuse. 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 She also says allergic to certain foods but she can not name them.Denies allergies to the medication. Patient says in the past. Has no children. Patient says breathing better compare she came in to the hospital Patient is on 3 litres O2. O2 saturation 97%. Chest xray reported: No acute cardiopulmonary process. Findings of COPD. Angio CT of chest reported:No evidence of pulmonary embolism. Small nodule versus small scar in the right lower lobe. Follow- up suggested. Enlarged mediastinal lymph node or lymph node mass in the pretracheal region. Further evaluation suggested. - Patient Problems (1) COPD with exacerbation Current Visit: Yes Status: Acute Plan to address problem: O2 3 litres via nasal canula. Albuterol/atrovent aerosol treatments q 6 hours. Continue I/V solumedral Continue Zithromax Continue famotidine. Recommend DVT prophlaxis S/C Lovenox or SCDs. ABGs on room air. PFTs as out patient. (2) ACS (acute coronary syndrome) Current Visit: Yes Status: Acute Plan to address problem: Management as per cardiology. (3) CHF (congestive heart failure) Current Visit: Yes Status: Acute Qualifiers: Heart failure type: systolic Heart failure chronicity: acute Qualified Code(s): I50.21 - Acute systolic (congestive) heart failure Plan to address problem: Management as per cardiology. (4) Chest pain Current Visit: Yes Status: Acute Qualifiers: Chest pain type: unspecified Qualified Code(s): R07.9 - Chest pain, unspecified Plan to address problem: Management as per cardiology. (5) Hypokalemia Current Visit: Yes Status: Acute (6) Nicotine dependence Current Visit: Yes Status: Acute Qualifiers: Nicotine product type: cigarettes Plan to address problem: Counselled to stop smoking. (7) Syncope Current Visit: Yes Status: Acute Qualifiers: Syncope type: unspecified Qualified Code(s): R55 - Syncope and collapse Plan to address problem: Management as per primary care. Recommend to consult neurology.
[2018-11-20] MEDS: DUONEB *Not for PRN Use IH SCH ×4 (02:43→20:18)
[2018-11-20] MEDS: XANAX PO PRN ×2 (05:12→16:46)
--- NOTE | 2018-11-20 07:58 | Hem/Onc Progress Note ---
Assessment and Plan Admitted with chest pain, shortness of breath, palpitations being investigated. 1. A 3.4 cm lymphadenopathy in a patient with a history of smoking. This could be reactive or neoplastic. Would need more investigation. It is not clear if this is amenable to bronchoscopic biopsy with its central location. The option also would be to do outpatient PET CT to see if there is activity in those lymph nodes. CT surgery evaluation is an option. 3. History of chronic obstructive pulmonary disease exacerbation. 4. History of being treated for possible congestive heart failure/chronic obstructive pulmonary disease. 5. Electrolyte issues. 11/19 feeling better - pulm consult will help 11/20/2018 - seen by pulm d/w pt reg OP PET CT - she says need to go to safe house due to pison at home - Patient Problems (1) Lymphadenopathy Current Visit: Yes Status: Acute Subjective Date of service: 11/20/18 Principal diagnosis: LN in chest Objective - Constitutional Vitals: Last Vital Signs Temp 98.0 F 11/20/18 03:54 Pulse 99 H 11/20/18 07:50 Resp 18 11/20/18 07:50 BP 154/96 11/20/18 03:54 Pulse Ox 99 11/20/18 07:51 Pain Intensity (0-10): denies any pain General appearance: no acute distress Performance status: 2- selfcare, ambulatory - EENT Eyes: EOM intact ENT: clear oral mucosa Lymph node exam: negative cervical - Neck Neck: normal ROM - Respiratory Respiratory effort: Positive: normal Respiratory: bilateral: CTA - Cardiovascular Heart Sounds: Present: S1 & S2 Extremities: No edema - Gastrointestinal General gastrointestinal: Present: soft, non-tender Rectal Exam: deferred - Genitourinary Female genitourinary: Present: deferred - Integumentary Integumentary: warm - Musculoskeletal Musculoskeletal: strength equal bilaterally - Neurologic Neurologic: moves all extremities Medications & Allergies - Medications Allergies/Adverse Reactions: Allergies No Known Allergies Allergy (Unverified 11/15/18 15:43) Home Medications: Home Medications Medication Instructions Recorded Confirmed Last Taken Type FLUoxetine HCL [Fluoxetine HCl] 40 mg PO DAILY 11/16/18 11/16/18 Unknown History Active Medications: Generic Name Dose Route Start Last Admin Trade Name Freq PRN Reason Stop Dose Admin Acetaminophen 650 mg 11/15/18 19:03 11/18/18 22:29 Tylenol PO 650 mg Q4H PRN Administration Pain MILD(1-3)/Fever >100.5/LANDRUM Albuterol 2.5 mg 11/15/18 19:03 11/18/18 05:29 Proventil IH 2.5 mg Q4H PRN Administration Shortness Of Breath Albuterol/Ipratropium 1 ampul 11/16/18 14:00 11/20/18 07:50 Duoneb *Not For Prn Use* IH 1 ampul Q6HRT [facility] Administration Alprazolam 0.25 mg 11/16/18 08:22 11/20/18 05:12 Xanax PO 0.25 mg Q8H PRN Administration Anxiety Aspirin 325 mg 11/16/18 12:00 11/19/18 10:16 Aspirin PO 325 mg QDAY [facility] Administration Atorvastatin Calcium 40 mg 11/16/18 22:00 11/19/18 22:50 Lipitor PO 40 mg QHS [facility] Administration Azithromycin 500 mg 11/19/18 10:00 11/19/18 10:17 Zithromax PO 500 mg QDAY [facility] Administration Carvedilol 3.125 mg 11/17/18 22:00 11/19/18 22:50 Coreg PO 3.125 mg BID [facility] Administration Famotidine 10 mg 11/15/18 22:00 11/19/18 22:50 Pepcid PO 10 mg BID [facility] Administration Fluoxetine HCl 40 mg 11/16/18 11:45 11/19/18 10:16 Prozac PO 40 mg QDAY [facility] Administration Morphine Sulfate 2 mg 11/15/18 19:09 11/16/18 11:03 Morphine IV 2 mg Q4H PRN Administration Pain , MODERATE Nicotine 21 mg 11/16/18 10:00 11/19/18 10:16 Habitrol TD 21 mg QDAY [facility] Administration Nitroglycerin 0.4 mg 11/15/18 19:03 Nitrostat SL Q5M PRN Chest Pain Ondansetron HCl 4 mg 11/15/18 19:03 11/16/18 04:30 Zofran IV 4 mg Q8H PRN Administration Nausea And Vomiting Sodium Chloride 10 ml 11/15/18 22:00 11/19/18 22:50 Sodium Chloride Flush Syringe 10 Ml IV 10 ml BID [facility] Administration Sodium Chloride 10 ml 11/15/18 19:03 Sodium Chloride Flush Syringe 10 Ml IV PRN PRN LINE FLUSH
--- NOTE | 2018-11-20 09:04 | Progress Note ---
Assessment and Plan Mediastinal lymphadenopathy AE-COPD Tobacco abuse disorder/Nicotine dependence Anxiety/psychosis Atypical chest pain -Supplemental oxygen to keep O2 sats>88% -Discontinue steroids as this may be contributing to her hallucinations -COLIN/NICOLE -Will need outpatietn pulmoanry follow up for PFTS to evaluate lung physiology. On discharge please iniitate therapy with LABA/LAMA -Influenza and pneumonia vaccination per protocol. -Smoking cessation counselling -VTE prophylaxis -Agree with Psychiatry evalaution -This patient is a high risk patient for lung cancer/malignancy given her quantity and duration of tobacco use. The mediastinal adenopathy could also be secondary to granulomatous and non- granulomatous infections. She need EBUS or mediastinoscopy for tissue sampling, both of which are not available at this facility. Discussed with hospitalist service. Subjective Date of service: 11/20/18 Principal diagnosis: LN in chest Interval history: Follow up: AE_COPD, Tobacco abuse disorder, Medastinal adenopathy Patient seen and examined. Vitals, albs, medications, chart and imaging reviewed. Patient has on going hallucinations, sitting up in bed, nude. Does not appear to have insight to her current situation. Denies any cough, denies any chest pain at this time, no hemoptysis Objective Vital Signs - 12hr 11/19/18 11/19/18 11/19/18 21:14 22:00 22:50 Temperature Pulse Rate 108 H Pulse Rate [ 110 H Bilateral] Pulse Rate [ 105 H Left Radial] Pulse Rate [ 110 H Right Radial] Respiratory Rate Respiratory 16 Rate [Bilateral ] Blood Pressure 167/98 O2 Sat by Pulse Oximetry 11/19/18 11/20/18 11/20/18 23:20 02:43 03:00 Temperature 98.0 F Pulse Rate 107 H Pulse Rate [ 110 H 115 H Bilateral] Pulse Rate [ Left Radial] Pulse Rate [ Right Radial] Respiratory 18 Rate Respiratory 16 15 Rate [Bilateral ] Blood Pressure 175/107 O2 Sat by Pulse 93 Oximetry 11/20/18 11/20/18 11/20/18 03:54 04:00 07:50 Temperature 98.0 F Pulse Rate 100 H 100 H Pulse Rate [ 99 H Bilateral] Pulse Rate [ Left Radial] Pulse Rate [ Right Radial] Respiratory 18 Rate Respiratory 18 Rate [Bilateral ] Blood Pressure 154/96 O2 Sat by Pulse 94 Oximetry 11/20/18 11/20/1819 07:51 08:01 08:21 Temperature 98.2 F Pulse Rate 99 H Pulse Rate [ 99 H Bilateral] Pulse Rate [ Left Radial] Pulse Rate [ Right Radial] Respiratory 18 Rate Respiratory 18 Rate [Bilateral ] Blood Pressure 130/88 O2 Sat by Pulse 99 97 Oximetry Constitutional: no acute distress, alert Eyes: non-icteric ENT: oropharynx moist Neck: supple, no lymphadenopathy, no JVD Effort: normal Ascultation: Bilateral: diminished breath sounds Cardiovascular: regular rate and rhythm, other (S1,S2, no murmurs, gallops or rubs) Gastrointestinal: normoactive bowel sounds, soft, non-tender, non-distended Integumentary: normal Extremities: no cyanosis, no edema, pulses normal Neurologic: non-focal exam, pupils equal and round, motor strength normal and Psychiatric: anxious CBC and BMP: 11/15/18 16:00 11/16/18 10:26 ABG, PT/INR, D-dimer: PT/INR, D-dimer D-Dimer 153.04 ng/mlDDU (0-234) 11/15/18 16:32 Abnormal lab findings: Abnormal Labs 11/15/18 11/15/18 11/15/18 16:00 16:00 19:08 MCHC 35 H [place] % (Auto) 7.7 H Seg Neutrophils % 71.3 H Sodium 128 L Potassium 3.4 L Chloride 86.6 L Carbon Dioxide 21 L Creatinine 0.5 L Glucose 136 H HDL Cholesterol 62 H 11/16/18 10:26 MCHC [place] % (Auto) Seg Neutrophils % Sodium 136 L D Potassium Chloride 93.5 L Carbon Dioxide Creatinine 0.5 L Glucose 134 H HDL Cholesterol Chest x-ray: image reviewed
[2018-11-20] MEDS: ZITHROMAX PO SCH (09:46)
[2018-11-20] MEDS: COREG PO SCH ×2 (09:46→23:22)
[2018-11-20] MEDS: HABITROL TD SCH (09:46)
[2018-11-20] MEDS: PROzac PO SCH (09:46)
[2018-11-20] MEDS: ASPIRIN PO SCH (09:46)
[2018-11-20] MEDS: PEPCID PO SCH ×2 (09:46→23:22)
[2018-11-20] MEDS: SODIUM CHLORIDE FLUSH SYRINGE 10 ML IV SCH ×2 (09:47→23:25)
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
--- NOTE | 2018-11-20 15:43 | Progress Note ---
Assessment and Plan / Mediastinal lymph node mass?? - noted on CT chest - incidental finding - Consulted hematology, likely reactive - will need outpt follow up - discussed with pulmonary need EBUS, which will be arranged as outpt /anxiety and ? psychosis - having hallucination and paranoia, stopped steroid, consulted psych - cont Prozac 40mg po QAM depression/anxiety and Xanax 0.25mg po Q 8hours PRN anxiety /Atypical Chest pain - reason fro admission - Patient with a long history of atypical chest pain, - prior extensive ischemic workup including cardiac catheterization were reportedly negative. - She declines any further ischemic cardiac workup stating that she feels too weak to walk on the treadmill, and does not like the pharmacologic stress test. Cardiology therefore recommended to manage conservatively. - placed on PPI for possible GERD / Palpitations - preserved Ef on 2d echo. Monitor at tele - she may benefit from outpatient event monitor if palpitations recur. /Hyponatremia, due to dehydration, follow bmp / hypokalemia, replete / COPD with acute exacerbation, improving -cont nebs, /Tobacco abuse, smokes 2ppd, placed on nicotine patch /Dvt Px, SCD Disposition: cleared by psych. But patient does not want to her current place. Brief history: 63 YO Female with IN, ?CHF, Nicotine Dependence, COPD, Medication Noncompliance presents to ED as she has experienced shortness of breath, chest palpitations, and pain in her chest over the past 1 week, with increasing frequency of symptoms over the past 2 days. Physical exam: General appearance: Present: no acute distress, well-nourished - EENT Eyes: PERRL, EOM intact ENT: hearing intact, clear oral mucosa Ears: bilateral: normal - Neck Neck: supple, normal ROM - Respiratory Respiratory effort: normal Respiratory: bilateral: diminished b/l - Cardiovascular Rhythm: regular Heart Sounds: Present: S1 & S2. Absent: gallop, rub Extremities: pulses intact, No edema, normal color, Full ROM - Gastrointestinal General gastrointestinal: Present: soft, non-tender, non-distended, normal bowel sounds - Integumentary Integumentary: clear, warm, dry - Musculoskeletal Musculoskeletal: 1, strength equal bilaterally - Neurologic Neurologic: moves all extremities - Psychiatric Psychiatric: memory intact, no appropriate mood/affect, no judgment & insight Subjective Date of service: 11/20/18 Principal diagnosis: intra thoracic LN Interval history: Patient seen and examined denies any chest pain, SOB improved, states feeling lot better today, appears less paraniod does not want to go home, wants placement Objective - Constitutional Vitals: Vital Signs - 12hr 11/20/18 11/20/18 11/20/18 03:54 04:00 07:50 Temperature 98.0 F Pulse Rate 100 H 100 H Pulse Rate [ 99 H Bilateral] Respiratory 18 Rate Respiratory 18 Rate [Bilateral ] Blood Pressure 154/96 O2 Sat by Pulse 94 Oximetry 11/20/18 11/20/18 11/20/18 07:51 08:01 08:21 Temperature 98.2 F Pulse Rate 99 H Pulse Rate [ 99 H Bilateral] Respiratory 18 Rate Respiratory 18 Rate [Bilateral ] Blood Pressure 130/88 O2 Sat by Pulse 99 97 Oximetry 11/20/18 11/20/18 11/20/18 10:45 12:00 13:35 Temperature 97.9 F Pulse Rate 100 H 99 H Pulse Rate [ 98 H Bilateral] Respiratory 18 Rate Respiratory 18 Rate [Bilateral ] Blood Pressure 112/69 O2 Sat by Pulse 97 Oximetry 11/20/18 13:45 Temperature Pulse Rate Pulse Rate [ 99 H Bilateral] Respiratory Rate Respiratory 18 Rate [Bilateral ] Blood Pressure O2 Sat by Pulse Oximetry - Labs CBC & Chem 7: 11/15/18 16:00 11/16/18 10:26
[2018-11-20] MEDS: MINIPRESS PO SCH (23:24)
[2018-11-21] MEDS: DUONEB *Not for PRN Use IH SCH ×4 (02:30→19:42)
[2018-11-21] MEDS: XANAX PO PRN ×3 (03:37→22:41)
[2018-11-21] MEDS: COREG PO SCH ×3 (11:03→22:41)
[2018-11-21] MEDS: PROzac PO SCH (11:03)
[2018-11-21] MEDS: HABITROL TD SCH (11:04)
[2018-11-21] MEDS: PEPCID PO SCH ×2 (11:04→22:41)
[2018-11-21] MEDS: ZITHROMAX PO SCH (11:04)
[2018-11-21] MEDS: SODIUM CHLORIDE FLUSH SYRINGE 10 ML IV SCH ×2 (11:05→22:43)
[2018-11-21] MEDS: ASPIRIN PO SCH (11:05)
--- NOTE | 2018-11-21 11:10 | Progress Note ---
Assessment and Plan Mediastinal lymphadenopathy AE-COPD Tobacco abuse disorder/Nicotine dependence Anxiety/psychosis Atypical chest pain -Supplemental oxygen to keep O2 sats>88% -Monitor off steroids -COLIN/NICOLE -Will need outpatient pulmonary follow up for PFTS to evaluate lung physiology. On discharge please initiate therapy with LABA/LAMA -Influenza and pneumonia vaccination per protocol. -Smoking cessation counselling -VTE prophylaxis -Agree with Psychiatry evaluation -This patient is a high risk patient for lung cancer/malignancy given her quantity and duration of tobacco use. The mediastinal adenopathy could also be secondary to granulomatous and non- granulomatous infections. She need EBUS or mediastinoscopy for tissue sampling, both of which are not available at this facility. -Continue all supportive care Subjective Date of service: 11/21/18 Principal diagnosis: intra thoracic LN Interval history: Follow up: AE-COPD, Tobacco abuse disorder, Mediastinal adenopathy Patient seen and examined. Vitals, albs, medications, chart and imaging review ed. Patient calmer this morning. Denies any cough, denies any chest pain at this time, no hemoptysis Objective Vital Signs - 12hr 11/20/18 11/21/18 11/21/18 23:22 01:08 03:35 Temperature 98.1 F Pulse Rate 104 H 102 H 95 H Pulse Rate [ Anterior Bilateral Throughout] Respiratory 17 Rate Respiratory Rate [Anterior Bilateral Throughout] Blood Pressure 122/73 103/72 O2 Sat by Pulse 97 Oximetry 11/21/18 11/21/18 11/21/18 07:15 07:25 08:06 Temperature Pulse Rate 98 H Pulse Rate [ 95 H 91 H Anterior Bilateral Throughout] Respiratory Rate Respiratory 20 20 Rate [Anterior Bilateral Throughout] Blood Pressure 97/71 O2 Sat by Pulse 97 97 Oximetry Constitutional: no acute distress, alert Eyes: non-icteric ENT: oropharynx moist Neck: supple, no lymphadenopathy Effort: normal Ascultation: Bilateral: diminished breath sounds Cardiovascular: regular rate and rhythm, other (S1,S2, no murmurs, gallops or rubs) Gastrointestinal: normoactive bowel sounds, soft, non-tender Integumentary: normal Extremities: no cyanosis, no edema Neurologic: normal mental status, non-focal exam, pupils equal and round Psychiatric: mood appropriate, affect normal CBC and BMP: 11/15/18 16:00 11/16/18 10:26 ABG, PT/INR, D-dimer: PT/INR, D-dimer D-Dimer 153.04 ng/mlDDU (0-234) 11/15/18 16:32 Abnormal lab findings: Abnormal Labs 11/15/18 11/15/18 11/15/18 16:00 16:00 19:08 MCHC 35 H [place] % (Auto) 7.7 H Seg Neutrophils % 71.3 H Sodium 128 L Potassium 3.4 L Chloride 86.6 L Carbon Dioxide 21 L Creatinine 0.5 L Glucose 136 H HDL Cholesterol 62 H 11/16/18 10:26 MCHC [place] % (Auto) Seg Neutrophils % Sodium 136 L D Potassium Chloride 93.5 L Carbon Dioxide Creatinine 0.5 L Glucose 134 H HDL Cholesterol
--- NOTE | 2018-11-21 12:02 | Discharge Summary ---
Providers - Providers Date of Admission: 11/15/18 19:03 Date of discharge: 11/25/18 Attending physician: BRANDY LOCKE 11/15/18 Consult to Cardiac Rehabilitation [CONS] Routine Reason For Exam: Phase I 11/17/18 15:50 Consult to Physician [CONS] Routine Comment: Consulting Provider: TERESA GUADARRAMA Physician Instructions: Reason For Exam: lymphnode mass 11/18/18 10:44 Consult to Mental Health [CONS] Routine Reason For Exam: paranoia Place consult to:: Roslyn Notified:: yes Phone number called:: [phone] Was contact made?: Yes 11/19/18 12:35 Consult to Physician [CONS] Routine Comment: Consulting Provider: LEANN CLIFFORD Physician Instructions: Reason For Exam: mediastital lymphadenopathy with h/o COPD Primary care physician: ERLINDA BENTON Hospitalization Condition: Critical Pertinent studies: CXR Chest CTA 2D echo Head CT Hospital course: Brief history: 63 YO Female with h/o COPD presented to ED as she has experienced shortness of breath, chest palpitations, and pain in her chest over the past 1 week, with increasing frequency of symptoms for 2 days before admission. She also noted hyperactive, anxious, and paranoid. Patient was admitted for further evaluation and management. Discharge diagnosis and management: /anxiety and ? psychosis? PTSD - having hallucination and paranoia, consulted psych - Placed on Prozac 40mg po QAM depression/anxiety and Xanax 0.25mg po Q 8hours PRN anxiety - started on Zyprexa 5 mg PO HS for psychosis, and Prazosin 1 mg PO HS for PTSD symptoms. - Psych recommended inpt psych placement /Atypical Chest pain - reason for admission - Patient with a long history of atypical chest pain, - prior extensive ischemic workup including cardiac catheterization were reportedly negative. - She declines any further ischemic cardiac workup stating that she feels too weak to walk on the treadmill, and does not like the pharmacologic stress test. Cardiology therefore recommended to manage conservatively. - placed on PPI for possible GERD / Mediastinal lymph node mass?? - noted on CT chest - incidental finding - Consulted hematology, likely reactive - will need outpt follow up - discussed with pulmonary need EBUS, which will be arranged as outpt / Palpitations - preserved Ef on 2d echo. Monitored with tele - she may benefit from outpatient event monitor if palpitations recur. will continue outpt followup /Hyponatremia, due to dehydration, resolved / hypokalemia, repleted / COPD with acute exacerbation, improved -treated with nebs, empiric steroid. /Tobacco abuse, smokes 2ppd, placed on nicotine patch /Dvt Px, SCD Disposition: inpt psych Physical exam: General appearance: Present: no acute distress, well-nourished - EENT Eyes: PERRL, EOM intact ENT: hearing intact, clear oral mucosa Ears: bilateral: normal - Neck Neck: supple, normal ROM - Respiratory Respiratory effort: normal Respiratory: bilateral: diminished b/l - Cardiovascular Rhythm: regular Heart Sounds: Present: S1 & S2. Absent: gallop, rub Extremities: pulses intact, No edema, normal color, Full ROM - Gastrointestinal General gastrointestinal: Present: soft, non-tender, non-distended, normal bowel sounds - Integumentary Integumentary: clear, warm, dry - Musculoskeletal Musculoskeletal: 1, strength equal bilaterally - Neurologic Neurologic: moves all extremities - Psychiatric Psychiatric: memory intact, no appropriate mood/affect, no judgment & insight Disposition: DC/[facility] PSY HOSP/PSY UNIT Time spent for discharge: 34 minutes Core Measure Documentation - Palliative Care Palliative Care/ Comfort Measures: Not Applicable - Core Measures Any of the following diagnoses?: none Exam - Constitutional Vitals: Temp Pulse Resp BP Pulse Ox 98.1 F 98 H 20 97/71 97 11/21/18 01:08 11/21/18 08:06 11/21/18 07:25 11/21/18 08:06 11/21/18 08:06 Plan Activity: advance as tolerated Weight Bearing Status: Weight Bear as Tolerated Diet: low fat, low salt Follow up with: SALINA WATKINS MD [Staff Physician] - 7 Days Prescriptions: Aspirin EC [Aspirin Enteric Coated TAB] 81 mg PO QDAY #30 tablet.
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
--- NOTE | 2018-11-21 16:00 | Progress Note ---
Subjective - Reason for Consult Consult date: 11/21/18 Reason for consult: Psychiatry Follow-up - Chief Complaint Chief complaint: " I had to move" 63 year old white female who presents to the emergency room with difficulty breathing and chest pain. Today the patient is cooperative, but tangent during the assessment. Per the notes, the patient was moved to another room because she complained that the room was toxic along with experiencing SOB. She stated that the move had to occur, because she was allergic to everything in that room. She stated that her current room is "perfect." She was asked several questions why she felt like she needed to move, her answers were not logical. She denies SI/HI's and AVH"s. She denies any side effects of her medications. Mental Status Exam - Vital signs Last Vital Signs Temp 98.1 F 11/21/18 01:08 Pulse 92 H 11/21/18 14:10 Resp 20 11/21/18 14:10 BP 97/71 11/21/18 08:06 Pulse Ox 97 11/21/18 08:06 - Exam Narrative exam: MSE: Appearance: cooperative Behavior: regular eye contact Speech: hyper verbal Mood: euphoric Affect: congruent to mood Thought Process: tangential Thought Content: denies SI/HI's and AVH's, delusional, paranoid Motor Activity: sitting up in bed Cognition: A/O x3 Insight: poor Judgment: poor Assessment and Plan Impression: Unspecified Psychosis. Hx of MDD/CALLIE/PTSD. Today the patent is cooperative, but tangent during the assessment. Recommendation/Plan: Initiate 1013 and start Zyprexa 5 mg PO HS for psychosis. Continue Prozac 40 mg PO dalily for depression/anxiety, Xanax 0.25 mg PO Q8hrs PRN for acute anxiety, and Prazosin 1 mg PO HS for PTSD symptoms. Discussed possible suicidality/medication induced talisha with the patient reference Prozac. Dispo: The patient will be referred to inpatient psy services. Will staff with Dr Campos.
[2018-11-21] MEDS: MINIPRESS PO SCH (22:39)
[2018-11-21] MEDS: MORPHINE IV PRN (22:42)
[2018-11-22] MEDS: DUONEB *Not for PRN Use IH SCH ×4 (02:38→21:24)
[2018-11-22] MEDS: COREG PO SCH ×3 (10:14→22:02)
[2018-11-22] MEDS: ASPIRIN PO SCH (10:14)
[2018-11-22] MEDS: PEPCID PO SCH ×2 (10:14→22:01)
[2018-11-22] MEDS: ZITHROMAX PO SCH (10:15)
[2018-11-22] MEDS: PROzac PO SCH (10:15)
[2018-11-22] MEDS: HABITROL TD SCH (10:15)
[2018-11-22] MEDS: XANAX PO PRN ×2 (10:15→22:01)
[2018-11-22] MEDS: SODIUM CHLORIDE FLUSH SYRINGE 10 ML IV SCH ×2 (10:16→22:03)
--- NOTE | 2018-11-22 12:42 | Progress Note ---
Assessment and Plan /anxiety and ? psychosis - having hallucination and paranoia, stopped steroid, consulted psych - cont Prozac 40mg po QAM depression/anxiety and Xanax 0.25mg po Q 8hours PRN anxiety - Psych recommended inpt psych placement /Atypical Chest pain - reason fro admission - Patient with a long history of atypical chest pain, - prior extensive ischemic workup including cardiac catheterization were reportedly negative. - She declines any further ischemic cardiac workup stating that she feels too weak to walk on the treadmill, and does not like the pharmacologic stress test. Cardiology therefore recommended to manage conservatively. - placed on PPI for possible GERD / Mediastinal lymph node mass?? - noted on CT chest - incidental finding - Consulted hematology, likely reactive - will need outpt follow up - discussed with pulmonary need EBUS, which will be arranged as outpt / Palpitations - preserved Ef on 2d echo. Monitor at tele - she may benefit from outpatient event monitor if palpitations recur. /Hyponatremia, due to dehydration, follow bmp / hypokalemia, replete / COPD with acute exacerbation, improved -cont nebs, /Tobacco abuse, smokes 2ppd, placed on nicotine patch /Dvt Px, SCD Disposition: medically cleared. need inpt psych Brief history: 63 YO Female with PR, ?CHF, Nicotine Dependence, COPD, Medication Noncompliance presents to ED as she has experienced shortness of breath, chest palpitations, and pain in her chest over the past 1 week, with increasing frequency of symptoms over the past 2 days. She also noted hyperactive, anxious, paranoid. Psych following. Physical exam: General appearance: Present: no acute distress, well-nourished - EENT Eyes: PERRL, EOM intact ENT: hearing intact, clear oral mucosa Ears: bilateral: normal - Neck Neck: supple, normal ROM - Respiratory Respiratory effort: normal Respiratory: bilateral: diminished b/l - Cardiovascular Rhythm: regular Heart Sounds: Present: S1 & S2. Absent: gallop, rub Extremities: pulses intact, No edema, normal color, Full ROM - Gastrointestinal General gastrointestinal: Present: soft, non-tender, non-distended, normal bowel sounds - Integumentary Integumentary: clear, warm, dry - Musculoskeletal Musculoskeletal: 1, strength equal bilaterally - Neurologic Neurologic: moves all extremities - Psychiatric Psychiatric: memory intact, no appropriate mood/affect, no judgment & insight Subjective Date of service: 11/21/18 Principal diagnosis: LN in chest Interval history: Patient seen and examined denies any chest pain, SOB improved, states feeling lot better today, appears less paraniod but incoherent Objective - Constitutional Vitals: Vital Signs - 12hr 11/22/18 11/22/18 11/22/18 06:14 07:28 09:44 Temperature 97.7 F 98.9 F Pulse Rate 73 103 H Pulse Rate [ 96 H Bilateral] Respiratory 20 18 Rate Respiratory 20 Rate [Bilateral ] Blood Pressure 150/83 97/72 O2 Sat by Pulse 93 99 Oximetry 11/22/18 11/22/18 09:50 09:54 Temperature Pulse Rate Pulse Rate [ 92 H Bilateral] Respiratory Rate Respiratory 18 Rate [Bilateral ] Blood Pressure O2 Sat by Pulse 96 Oximetry - Labs CBC & Chem 7: 11/15/18 16:00 11/16/18 10:26
--- NOTE | 2018-11-22 17:38 | Progress Note ---
Subjective - Reason for Consult Consult date: 11/22/18 Reason for consult: follow up - Chief Complaint Chief complaint: " I want to eat. " 63 year old white female who presents to the emergency room with difficulty breathing and chest pain. She is on 1013 for psychosis. She does not want to answer questions. Mental Status Exam Narrative exam: MSE: uncooperative loud Assessment and Plan Impression: Unspecified Psychosis. Hx of MDD/CALLIE/PTSD. Today the patent is uncooperative Recommendation/Plan: Continue 1013 and continue Zyprexa 5 mg PO HS for psychosis. Continue Prozac 40 mg PO dalily for depression/anxiety, Xanax 0.25 mg PO Q8hrs PRN for acute anxiety, and Prazosin 1 mg PO HS for PTSD symptoms. Dispo: The patient will be referred to inpatient psy services. Staffed with Dr. Di Langley Mental Status Exam - Vital signs Last Vital Signs Temp 98.9 F 11/22/18 07:28 Pulse 92 H 11/22/18 09:54 Resp 18 11/22/18 09:54 BP 97/72 11/22/18 07:28 Pulse Ox 96 11/22/18 09:50
[2018-11-22 18:40] LABS: Bilirubin,Urine NEG (Negative); Blood,Urine NEG (Negative); Color,Urine Colorless (Yellow); Protein,Urine <15 mg/dL mg/dL (Negative); RBC,Urine < 1.0 /HPF (0.0-6.0); Urobilinogen,Urine < 2.0 mg/dL (<2.0)
[2018-11-22 18:44] LABS: WBC,Urine < 1.0 /HPF (0.0-6.0)
[2018-11-22 18:49] LABS: Amphetamine Screen,Urine PRESUMPTIVE NEGATIVE; Benzodiazepines Screen,Urine PRESUMPTIVE NEGATIVE; Cannabinoid Screen,Urine PRESUMPTIVE NEGATIVE; Cocaine Screen,Urine PRESUMPTIVE NEGATIVE; Methadone Screen,Urine PRESUMPTIVE NEGATIVE; Opiate Screen,Urine PRESUMPTIVE NEGATIVE
[2018-11-22] MEDS: MINIPRESS PO SCH (22:03)
--- NOTE | 2018-11-22 22:37 | Event Note ---
Date: 11/22/18 Patient refusing to be seen and examined by me. She says she is going some place else.She does not have to see the doctors here. I am signing off the case. If patient agrees to be seen by our group, call us back.
[2018-11-23] MEDS: DUONEB *Not for PRN Use IH SCH ×4 (02:00→19:47)
[2018-11-23] MEDS ORDERED: RESTORIL PO ONE (02:46)
--- NOTE | 2018-11-23 08:12 | Hem/Onc Progress Note ---
Assessment and Plan Admitted with chest pain, shortness of breath, palpitations being investigated. 1. A 3.4 cm lymphadenopathy in a patient with a history of smoking. This could be reactive or neoplastic. Would need more investigation. It is not clear if this is amenable to bronchoscopic biopsy with its central location. The option also would be to do outpatient PET CT to see if there is activity in those lymph nodes. CT surgery evaluation is an option. 3. History of chronic obstructive pulmonary disease exacerbation. 4. History of being treated for possible congestive heart failure/chronic obstructive pulmonary disease. 5. Electrolyte issues. 11/19 feeling better - pulm consult will help 11/20/2018 - seen by pulm d/w pt reg OP PET CT - she says need to go to safe house due to poison at home 11/21/2018 pt was scheduled for some procedure - but pt refused same. pt says - can smell something abn in the room pt has a sitter.- as per psych eval OP follow up from ONc perspective - will look into PET CT as OP 11/23/2018 - clinically stable - Patient Problems (1) Lymphadenopathy Current Visit: Yes Status: Acute Subjective Date of service: 11/23/18 Principal diagnosis: chest LN Interval history: pt has a sitter reviewed pulm notes Objective - Constitutional Vitals: Last Vital Signs Temp 98.5 F 11/22/18 23:49 Pulse 95 H 11/22/18 23:49 Resp 20 11/22/18 23:49 BP 116/77 11/23/18 02:30 Pulse Ox 100 11/22/18 23:49 Pain Intensity (0-10): denies any pain General appearance: no acute distress Performance status: 2- selfcare, ambulatory - EENT Eyes: EOM intact ENT: other (hard of hearing) - Neck Neck: supple - Respiratory Respiratory effort: Positive: normal Respiratory: bilateral: CTA - Cardiovascular Heart Sounds: Present: S1 & S2 Extremities: No edema - Gastrointestinal General gastrointestinal: Present: soft, non-tender Rectal Exam: deferred - Genitourinary Female genitourinary: Present: deferred - Musculoskeletal Musculoskeletal: strength equal bilaterally - Neurologic Neurologic: moves all extremities - Psychiatric Psychiatric: other (there is a sitter) - Labs Lab Results: Laboratory Results - last 24 hr 11/22/18 11/22/18 Unknown Unknown Urine Color Colorless Urine Turbidity Clear Urine pH 7.0 Ur Specific [place] 1.001 L Urine Protein <15 mg/dl Urine Glucose (UA) Neg Urine Ketones Neg Urine Blood Neg Urine Nitrite Neg Urine Bilirubin Neg Urine Urobilinogen < 2.0 Ur Leukocyte Esterase Neg Urine WBC (Auto) < 1.0 Urine RBC (Auto) < 1.0 Urine Opiates Screen Presumptive negative Urine Methadone Screen Presumptive negative Ur Barbiturates Screen Presumptive negative Ur Phencyclidine Scrn Presumptive negative Ur Amphetamines Screen Presumptive negative U Benzodiazepines Scrn Presumptive negative Urine Cocaine Screen Presumptive negative U Marijuana (THC) Screen Presumptive negative Drugs of Abuse Note Disclamer Medications & Allergies - Medications Allergies/Adverse Reactions: Allergies No Known Allergies Allergy (Unverified 11/15/18 15:43) Home Medications: Home Medications Medication Instructions Recorded Confirmed Last Taken Type FLUoxetine HCL [Fluoxetine HCl] 40 mg PO DAILY 11/16/18 11/16/18 Unknown History ALPRAZolam [Xanax TAB] 0.25 mg PO Q8H PRN tablet 11/21/18 Unknown Rx Aspirin EC [Aspirin Enteric Coated 81 mg PO QDAY #30 tablet. 11/21/18 Unknown Rx TAB] AtorvaSTATin [Lipitor] 40 mg PO QHS tablet 11/21/18 Unknown Rx Carvedilol [Coreg] 3.125 mg PO BID tablet 11/21/18 Unknown Rx Nicotine [Habitrol] 21 mg TD QDAY patch 11/21/18 Unknown Rx Prazosin [Minipress] 1 mg PO HS capsule 11/21/18 Unknown Rx Active Medications: Generic Name Dose Route Start Last Admin Trade Name Freq PRN Reason Stop Dose Admin Acetaminophen 650 mg 11/15/18 19:03 11/18/18 22:29 Tylenol PO 650 mg Q4H PRN Administration Pain MILD(1-3)/Fever >100.5/LANDRUM Albuterol 2.5 mg 11/15/18 19:03 11/18/18 05:29 Proventil IH 2.5 mg Q4H PRN Administration Shortness Of Breath Albuterol/Ipratropium 1 ampul 11/16/18 14:00 11/23/18 02:00 Duoneb *Not For Prn Use* IH Not Given Q6HRT RYLEY Alprazolam 0.25 mg 11/16/18 08:22 11/22/18 22:01 Xanax PO 0.25 mg Q8H PRN Administration Anxiety Aspirin 325 mg 11/16/18 12:00 11/22/18 10:14 Aspirin PO 325 mg QDAY RYLEY Administration Atorvastatin Calcium 40 mg 11/16/18 22:00 11/22/18 22:02 Lipitor PO 40 mg QHS RYLEY Administration Azithromycin 500 mg 11/19/18 10:00 11/22/18 10:15 Zithromax PO 500 mg QDAY RYLEY Administration Carvedilol 3.125 mg 11/17/18 22:00 11/22/18 22:02 Coreg PO 3.125 mg BID RYLEY Administration Famotidine 10 mg 11/15/18 22:00 11/22/18 22:01 Pepcid PO 10 mg BID RYLEY Administration Fluoxetine HCl 40 mg 11/16/18 11:45 11/22/18 10:15 Prozac PO 40 mg QDAY RYLEY Administration Morphine Sulfate 2 mg 11/15/18 19:09 11/21/18 22:42 Morphine IV 2 mg Q4H PRN Administration Pain , MODERATE Nicotine 21 mg 11/16/18 10:00 11/22/18 10:15 Habitrol TD 21 mg QDAY RYLEY Administration Nitroglycerin 0.4 mg 11/15/18 19:03 Nitrostat SL Q5M PRN Chest Pain Olanzapine 5 mg 11/21/18 22:00 11/22/18 22:02 Zyprexa PO 5 mg HS RYLEY Administration Ondansetron HCl 4 mg 11/15/18 19:03 11/16/18 04:30 Zofran IV 4 mg Q8H PRN Administration Nausea And Vomiting Prazosin HCl 1 mg 11/20/18 22:00 11/22/18 22:03 Minipress PO Not Given HS RYLEY Sodium Chloride 10 ml 11/15/18 22:00 11/22/18 22:03 Sodium Chloride Flush Syringe 10 Ml IV 10 ml BID RYLEY Administration Sodium Chloride 10 ml 11/15/18 19:03 11/21/18 22:43 Sodium Chloride Flush Syringe 10 Ml IV 10 ml PRN PRN Administration LINE FLUSH
--- NOTE | 2018-11-23 10:30 | Progress Note ---
Assessment and Plan /anxiety and ? psychosis? PTSD - having hallucination and paranoia, stopped steroid, consulted psych - cont Prozac 40mg po QAM depression/anxiety and Xanax 0.25mg po Q 8hours PRN anxiety - started on Zyprexa 5 mg PO HS for psychosis, and Prazosin 1 mg PO HS for PTSD symptoms. - Psych recommended inpt psych placement /Atypical Chest pain - reason fro admission - Patient with a long history of atypical chest pain, - prior extensive ischemic workup including cardiac catheterization were reportedly negative. - She declines any further ischemic cardiac workup stating that she feels too weak to walk on the treadmill, and does not like the pharmacologic stress test. Cardiology therefore recommended to manage conservatively. - placed on PPI for possible GERD / Mediastinal lymph node mass?? - noted on CT chest - incidental finding - Consulted hematology, likely reactive - will need outpt follow up - discussed with pulmonary need EBUS, which will be arranged as outpt / Palpitations - preserved Ef on 2d echo. Monitor at tele - she may benefit from outpatient event monitor if palpitations recur. /Hyponatremia, due to dehydration, follow bmp / hypokalemia, replete / COPD with acute exacerbation, improved -cont nebs, /Tobacco abuse, smokes 2ppd, placed on nicotine patch /Dvt Px, SCD Disposition: medically cleared. need inpt psych Brief history: 63 YO Female with [place], ?CHF, Nicotine Dependence, COPD, Medication Noncompliance presents to ED as she has experienced shortness of breath, chest palpitations, and pain in her chest over the past 1 week, with increasing frequency of symptoms over the past 2 days. She also noted hyperactive, anxious, paranoid. Psych following. Physical exam: General appearance: Present: no acute distress, well-nourished - EENT Eyes: PERRL, EOM intact ENT: hearing intact, clear oral mucosa Ears: bilateral: normal - Neck Neck: supple, normal ROM - Respiratory Respiratory effort: normal Respiratory: bilateral: diminished b/l - Cardiovascular Rhythm: regular Heart Sounds: Present: S1 & S2. Absent: gallop, rub Extremities: pulses intact, No edema, normal color, Full ROM - Gastrointestinal General gastrointestinal: Present: soft, non-tender, non-distended, normal bowel sounds - Integumentary Integumentary: clear, warm, dry - Musculoskeletal Musculoskeletal: 1, strength equal bilaterally - Neurologic Neurologic: moves all extremities - Psychiatric Psychiatric: memory intact, no appropriate mood/affect, no judgment & insight Subjective Date of service: 11/22/18 Principal diagnosis: LN in chest Interval history: Patient seen and examined denies any chest pain, SOB improved, states feeling lot better today, appears less paraniod but incoherent Objective - Constitutional Vitals: Vital Signs - 12hr 11/22/18 11/23/18 11/23/18 23:49 02:30 09:40 Temperature 98.5 F Pulse Rate 95 H Pulse Rate [ 101 H Bilateral] Respiratory 20 Rate Respiratory 18 Rate [Bilateral ] Blood Pressure 119/71 116/77 O2 Sat by Pulse 100 Oximetry 11/23/18 11/23/18 09:50 10:00 Temperature Pulse Rate Pulse Rate [ 99 H Bilateral] Respiratory Rate Respiratory 18 Rate [Bilateral ] Blood Pressure O2 Sat by Pulse 98 Oximetry - Labs CBC & Chem 7: 11/15/18 16:00 11/16/18 10:26 Labs: Abnormal lab results 11/22/18 Range/Units Unknown Ur Specific [place] 1.001 L (1.003-1.030)
[2018-11-23] MEDS: ASPIRIN PO SCH ×2 (11:03→12:41)
[2018-11-23] MEDS: COREG PO SCH ×2 (11:03→22:11)
[2018-11-23] MEDS: HABITROL TD SCH ×2 (11:03→12:41)
[2018-11-23] MEDS: SODIUM CHLORIDE FLUSH SYRINGE 10 ML IV SCH ×2 (11:04→22:13)
[2018-11-23] MEDS: PROzac PO SCH ×2 (11:04→12:40)
[2018-11-23] MEDS: ZITHROMAX PO SCH ×2 (11:04→12:41)
[2018-11-23] MEDS: PEPCID PO SCH ×3 (11:04→22:12)
[2018-11-23] MEDS: XANAX PO PRN (18:04)
--- NOTE | 2018-11-23 18:25 | Progress Note ---
Subjective - Reason for Consult Consult date: 11/23/18 Reason for consult: follow up - Chief Complaint Chief complaint: " I want to eat. " 63 year old white female who presents to the emergency room with difficulty breathing and chest pain. She is on 1013 for psychosis. She told this [employer] to leave the room. 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 Her sitter reports she has been "talking to Oprah" most of the day. She also talks about how she is protected by the feds. Mental Status Exam Narrative exam: MSE: uncooperative loud responding to internal stimuli paranoid delusions-feds are protecting her "talking to Oprah" Assessment and Plan Impression: Unspecified Psychosis. Hx of MDD/CALLIE/PTSD. Today the patent is uncooperative Recommendation/Plan: Continue 1013 and continue Zyprexa 5 mg PO HS for psychosis. Continue Prozac 40 mg PO dalily for depression/anxiety, Xanax 0.25 mg PO Q8hrs PRN for acute anxiety, and Prazosin 1 mg PO HS for PTSD symptoms. Dispo: The patient will be referred to inpatient psy services. Staffed with Dr. Di Langley Mental Status Exam - Vital signs Last Vital Signs Temp 99.4 F 11/23/18 12:28 Pulse 105 H 11/23/18 15:31 Resp 18 11/23/18 13:49 BP 132/90 11/23/18 15:31 Pulse Ox 99 11/23/18 15:31
[2018-11-23] MEDS: MINIPRESS PO SCH (22:08)
[2018-11-24] MEDS: DUONEB *Not for PRN Use IH SCH ×5 (02:49→20:04)
--- NOTE | 2018-11-24 07:51 | Hem/Onc Progress Note ---
Assessment and Plan Admitted with chest pain, shortness of breath, palpitations being investigated. 1. A 3.4 cm lymphadenopathy in a patient with a history of smoking. This could be reactive or neoplastic. Would need more investigation. It is not clear if this is amenable to bronchoscopic biopsy with its central location. The option also would be to do outpatient PET CT to see if there is activity in those lymph nodes. CT surgery evaluation is an option. 3. History of chronic obstructive pulmonary disease exacerbation. 4. History of being treated for possible congestive heart failure/chronic obstructive pulmonary disease. 5. Electrolyte issues. 11/19 feeling better - pulm consult will help 11/20/2018 - seen by pulm d/w pt reg OP PET CT - she says need to go to safe house due to poison at home 11/21/2018 pt was scheduled for some procedure - but pt refused same. pt says - can smell something abn in the room pt has a sitter.- as per psych eval OP follow up from ONc perspective - will look into PET CT as OP 11/23/2018 - clinically stable 11/24 - as per notes - In-pt psych planned - Patient Problems (1) Lymphadenopathy Current Visit: Yes Status: Acute Subjective Date of service: 11/24/18 Principal diagnosis: chest LN Interval history: reviewed Psych notes - In pt psych planned Objective - Constitutional Vitals: Last Vital Signs Temp 98.6 F 11/24/18 03:47 Pulse 95 H 11/24/18 03:47 Resp 16 11/24/18 03:47 BP 118/78 11/24/18 03:47 Pulse Ox 100 11/24/18 03:47 Pain Intensity (0-10): denies any pain General appearance: no acute distress Performance status: 2- selfcare, ambulatory - EENT Eyes: EOM intact ENT: clear oral mucosa Lymph node exam: negative cervical - Neck Neck: normal ROM - Respiratory Respiratory effort: Positive: normal Respiratory: bilateral: CTA - Cardiovascular Heart Sounds: Present: S1 & S2 Extremities: No edema - Gastrointestinal General gastrointestinal: Present: soft, non-tender Rectal Exam: deferred - Genitourinary Female genitourinary: Present: deferred - Integumentary Integumentary: warm - Musculoskeletal Musculoskeletal: strength equal bilaterally - Neurologic Neurologic: moves all extremities Medications & Allergies - Medications Allergies/Adverse Reactions: Allergies No Known Allergies Allergy (Unverified 11/15/18 15:43) Home Medications: Home Medications Medication Instructions Recorded Confirmed Last Taken Type FLUoxetine HCL [Fluoxetine HCl] 40 mg PO DAILY 11/16/18 11/16/18 Unknown History ALPRAZolam [Xanax TAB] 0.25 mg PO Q8H PRN tablet 11/21/18 Unknown Rx Aspirin EC [Aspirin Enteric Coated 81 mg PO QDAY #30 tablet.dr 11/21/18 Unknown Rx TAB] AtorvaSTATin [Lipitor] 40 mg PO QHS tablet 11/21/18 Unknown Rx Carvedilol [Coreg] 3.125 mg PO BID tablet 11/21/18 Unknown Rx Nicotine [Habitrol] 21 mg TD QDAY patch 11/21/18 Unknown Rx Prazosin [Minipress] 1 mg PO HS capsule 11/21/18 Unknown Rx Active Medications: Generic Name Dose Route Start Last Admin Trade Name Freq PRN Reason Stop Dose Admin Acetaminophen 650 mg 11/15/18 19:03 11/18/18 22:29 Tylenol PO 650 mg Q4H PRN Administration Pain MILD(1-3)/Fever >100.5/LANDRUM Albuterol 2.5 mg 11/15/18 19:03 11/18/18 05:29 Proventil IH 2.5 mg Q4H PRN Administration Shortness Of Breath Albuterol/Ipratropium 1 ampul 11/16/18 14:00 11/24/18 02:49 Duoneb *Not For Prn Use* IH Not Given Q6HRT RYLEY Alprazolam 0.25 mg 11/16/18 08:22 11/23/18 18:04 Xanax PO 0.25 mg Q8H PRN Administration Anxiety Aspirin 325 mg 11/16/18 12:00 11/23/18 12:41 Aspirin PO 325 mg QDAY RYLEY Administration Atorvastatin Calcium 40 mg 11/16/18 22:00 11/23/18 22:12 Lipitor PO 40 mg QHS RYLEY Administration Azithromycin 500 mg 11/19/18 10:00 11/23/18 12:41 Zithromax PO 500 mg QDAY RYLEY Administration Carvedilol 3.125 mg 11/17/18 22:00 11/23/18 22:11 Coreg PO 3.125 mg BID RYLEY Administration Famotidine 10 mg 11/15/18 22:00 11/23/18 22:12 Pepcid PO 10 mg BID RYLEY Administration Fluoxetine HCl 40 mg 11/16/18 11:45 11/23/18 12:40 Prozac PO 40 mg QDAY RYLEY Administration Morphine Sulfate 2 mg 11/15/18 19:09 11/21/18 22:42 Morphine IV 2 mg Q4H PRN Administration Pain , MODERATE Nicotine 21 mg 11/16/18 10:00 11/23/18 12:41 Habitrol TD 21 mg QDAY RYLEY Administration Nitroglycerin 0.4 mg 11/15/18 19:03 Nitrostat SL Q5M PRN Chest Pain Olanzapine 5 mg 11/21/18 22:00 11/23/18 22:11 Zyprexa PO 5 mg HS RYLEY Administration Ondansetron HCl 4 mg 11/15/18 19:03 11/16/18 04:30 Zofran IV 4 mg Q8H PRN Administration Nausea And Vomiting Prazosin HCl 1 mg 11/20/18 22:00 11/23/18 22:08 Minipress PO 1 mg HS RYLEY Administration Sodium Chloride 10 ml 11/15/18 22:00 11/23/18 22:13 Sodium Chloride Flush Syringe 10 Ml IV 10 ml BID RYLEY Administration Sodium Chloride 10 ml 11/15/18 19:03 11/21/18 22:43 Sodium Chloride Flush Syringe 10 Ml IV 10 ml PRN PRN Administration LINE FLUSH
[2018-11-24] MEDS: PEPCID PO SCH ×2 (10:46→22:04)
[2018-11-24] MEDS: HABITROL TD SCH (10:47)
[2018-11-24] MEDS: PROzac PO SCH (10:47)
[2018-11-24] MEDS: ZITHROMAX PO SCH (10:47)
[2018-11-24] MEDS: COREG PO SCH ×2 (10:48→22:05)
[2018-11-24] MEDS: SODIUM CHLORIDE FLUSH SYRINGE 10 ML IV SCH ×2 (10:49→22:04)
[2018-11-24] MEDS: ASPIRIN PO SCH (10:49)
--- NOTE | 2018-11-24 10:50 | Progress Note ---
Subjective - Reason for Consult Consult date: 11/24/18 Reason for consult: Psychiatry Follow-up - Chief Complaint Chief complaint: "Come back" 63 year old white female who presents to the emergency room with difficulty breathing and chest pain. She is on 1013 for psychosis. Today the patent is calm, but asked to be seen in 24 hours. Per the sitter, the patient has talked to herself throughout the shift. No indications of side effects of her medications. Mental Status Exam - Vital signs Last Vital Signs Temp 98.6 F 11/24/18 03:47 Pulse 112 H 11/24/18 10:48 Resp 18 11/24/18 08:20 BP 120/87 11/24/18 10:48 Pulse Ox 100 11/24/18 08:20 - Exam Narrative exam: Unable to complete the MSE because the patient asked me the provider to return in 24 hours. Assessment and Plan Impression: Unspecified Psychosis. Hx of MDD/CALLIE/PTSD. Today the patent is calm, but asked to be seen in 24 hours. Recommendation/Plan: Continue 1013 and Zyprexa 5 mg PO HS for psychosi, Prozac 40 mg PO dalily for depression/anxiety, Xanax 0.25 mg PO Q8hrs PRN for acute anxiety, and Prazosin 1 mg PO HS for PTSD symptoms. Discussed possible suicidality/medication induced talisha with the patient reference Prozac. Dispo: The patient was referred to inpatient psy services. Will staff with Dr Mick Langley.
--- NOTE | 2018-11-24 11:06 | Progress Note ---
Assessment and Plan /anxiety and ? psychosis? PTSD - having hallucination and paranoia, stopped steroid, consulted psych - cont Prozac 40mg po QAM depression/anxiety and Xanax 0.25mg po Q 8hours PRN anxiety - started on Zyprexa 5 mg PO HS for psychosis, and Prazosin 1 mg PO HS for PTSD symptoms. - Psych recommended inpt psych placement /Atypical Chest pain - reason fro admission - Patient with a long history of atypical chest pain, - prior extensive ischemic workup including cardiac catheterization were reportedly negative. - She declines any further ischemic cardiac workup stating that she feels too weak to walk on the treadmill, and does not like the pharmacologic stress test. Cardiology therefore recommended to manage conservatively. - placed on PPI for possible GERD / Mediastinal lymph node mass?? - noted on CT chest - incidental finding - Consulted hematology, likely reactive - will need outpt follow up - discussed with pulmonary need EBUS, which will be arranged as outpt / Palpitations - preserved Ef on 2d echo. Monitor at tele - she may benefit from outpatient event monitor if palpitations recur. /Hyponatremia, due to dehydration, follow bmp / hypokalemia, replete / COPD with acute exacerbation, improved -cont nebs, /Tobacco abuse, smokes 2ppd, placed on nicotine patch /Dvt Px, SCD Disposition: medically cleared. need inpt psych Brief history: 63 YO Female with MS, ?CHF, Nicotine Dependence, COPD, Medication Noncompliance presents to ED as she has experienced shortness of breath, chest palpitations, and pain in her chest over the past 1 week, with increasing frequency of symptoms over the past 2 days. She also noted hyperactive, anxious, paranoid. Psych following. Physical exam: General appearance: Present: no acute distress, well-nourished - EENT Eyes: PERRL, EOM intact ENT: hearing intact, clear oral mucosa Ears: bilateral: normal - Neck Neck: supple, normal ROM - Respiratory Respiratory effort: normal Respiratory: bilateral: diminished b/l - Cardiovascular Rhythm: regular Heart Sounds: Present: S1 & S2. Absent: gallop, rub Extremities: pulses intact, No edema, normal color, Full ROM - Gastrointestinal General gastrointestinal: Present: soft, non-tender, non-distended, normal bowel sounds - Integumentary Integumentary: clear, warm, dry - Musculoskeletal Musculoskeletal: 1, strength equal bilaterally - Neurologic Neurologic: moves all extremities - Psychiatric Psychiatric: memory intact, no appropriate mood/affect, no judgment & insight Subjective Date of service: 11/23/18 Principal diagnosis: chest LN Interval history: Patient seen and examined denies any chest pain, SOB improved, states feeling lot better today, appears less paraniod but incoherent Objective - Constitutional Vitals: Vital Signs - 12hr 11/24/18 11/24/18 11/24/18 03:47 08:20 10:48 Temperature 98.6 F Pulse Rate 95 H 98 H 112 H Respiratory 16 18 Rate Blood Pressure 118/78 120/87 Blood Pressure 120/87 [Right] O2 Sat by Pulse 100 100 Oximetry - Labs CBC & Chem 7: 11/15/18 16:00 11/16/18 10:26
[2018-11-24] MEDS: MINIPRESS PO SCH (22:05)
[2018-11-24] MEDS: XANAX PO PRN (22:08)
[2018-11-25] MEDS: DUONEB *Not for PRN Use IH SCH ×5 (03:07→19:25)
--- NOTE | 2018-11-25 08:29 | Hem/Onc Progress Note ---
Assessment and Plan Admitted with chest pain, shortness of breath, palpitations being investigated. 1. A 3.4 cm lymphadenopathy in a patient with a history of smoking. This could be reactive or neoplastic. Would need more investigation. It is not clear if this is amenable to bronchoscopic biopsy with its central location. The option also would be to do outpatient PET CT to see if there is activity in those lymph nodes. CT surgery evaluation is an option. 3. History of chronic obstructive pulmonary disease exacerbation. 4. History of being treated for possible congestive heart failure/chronic obstructive pulmonary disease. 5. Electrolyte issues. 11/19 feeling better - pulm consult will help 11/20/2018 - seen by pulm d/w pt reg OP PET CT - she says need to go to safe house due to poison at home 11/21/2018 pt was scheduled for some procedure - but pt refused same. pt says - can smell something abn in the room pt has a sitter.- as per psych eval OP follow up from ONc perspective - will look into PET CT as OP 11/23/2018 - clinically stable 11/25 - as per notes - In-pt psych planned - Patient Problems (1) Lymphadenopathy Status: Acute Subjective Date of service: 11/25/18 Principal diagnosis: chest LN Objective - Constitutional Vitals: Last Vital Signs Temp 98.2 F 11/25/18 04:31 Pulse 88 11/25/18 08:00 Resp 17 11/25/18 08:00 BP 94/57 11/25/18 04:31 Pulse Ox 100 11/25/18 04:31 Pain Intensity (0-10): denies any pain General appearance: no acute distress Performance status: 2- selfcare, ambulatory - EENT Eyes: EOM intact ENT: other (hard of hearing) Lymph node exam: negative cervical - Neck Neck: normal ROM - Respiratory Respiratory effort: Positive: normal Respiratory: bilateral: CTA - Cardiovascular Heart Sounds: Present: S1 & S2 Extremities: No edema - Gastrointestinal General gastrointestinal: Present: soft, non-tender Rectal Exam: deferred - Genitourinary Female genitourinary: Present: deferred - Integumentary Integumentary: warm - Musculoskeletal Musculoskeletal: strength equal bilaterally - Neurologic Neurologic: moves all extremities Medications & Allergies - Medications Allergies/Adverse Reactions: Allergies No Known Allergies Allergy (Unverified 11/15/18 15:43) Home Medications: Home Medications Medication Instructions Recorded Confirmed Last Taken Type RX: FLUoxetine HCL [Fluoxetine HCl] 40 mg PO DAILY 11/16/18 11/16/18 Unknown History RX: ALPRAZolam [Xanax TAB] 0.25 mg PO Q8H PRN tablet 11/21/18 Unknown Rx RX: Aspirin EC [Aspirin Enteric 81 mg PO QDAY #30 tablet.dr 11/21/18 Unknown Rx Coated TAB] RX: AtorvaSTATin [Lipitor] 40 mg PO QHS tablet 11/21/18 Unknown Rx RX: Carvedilol [Coreg] 3.125 mg PO BID tablet 11/21/18 Unknown Rx RX: Nicotine [Habitrol] 21 mg TD QDAY patch 11/21/18 Unknown Rx RX: Prazosin [Minipress] 1 mg PO HS capsule 11/21/18 Unknown Rx Active Medications: Generic Name Dose Route Start Last Admin Trade Name Freq PRN Reason Stop Dose Admin Acetaminophen 650 mg 11/15/18 19:03 11/18/18 22:29 Tylenol PO 650 mg Q4H PRN Administration Pain MILD(1-3)/Fever >100.5/LANDRUM Albuterol 2.5 mg 11/15/18 19:03 11/18/18 05:29 Proventil IH 2.5 mg Q4H PRN Administration Shortness Of Breath Albuterol/Ipratropium 1 ampul 11/25/18 08:00 11/25/18 07:59 Duoneb *Not For Prn Use* IH 1 ampul TIDRT RYLEY Administration Alprazolam 0.25 mg 11/16/18 08:22 11/24/18 22:08 Xanax PO 0.25 mg Q8H PRN Administration Anxiety Aspirin 325 mg 11/16/18 12:00 11/24/18 10:49 Aspirin PO 325 mg QDAY RYLEY Administration Atorvastatin Calcium 40 mg 11/16/18 22:00 11/24/18 22:03 Lipitor PO 40 mg QHS RYLEY Administration Azithromycin 500 mg 11/19/18 10:00 11/24/18 10:47 Zithromax PO 500 mg QDAY RYLEY Administration Carvedilol 3.125 mg 11/17/18 22:00 11/24/18 22:05 Coreg PO 3.125 mg BID RYLEY Administration Famotidine 10 mg 11/15/18 22:00 11/24/18 22:04 Pepcid PO 10 mg BID RYLEY Administration Fluoxetine HCl 40 mg 11/16/18 11:45 11/24/18 10:47 Prozac PO 40 mg QDAY RYLEY Administration Morphine Sulfate 2 mg 11/15/18 19:09 11/21/18 22:42 Morphine IV 2 mg Q4H PRN Administration Pain , MODERATE Nicotine 21 mg 11/16/18 10:00 11/24/18 10:47 Habitrol TD 21 mg QDAY RYLEY Administration Nitroglycerin 0.4 mg 11/15/18 19:03 Nitrostat SL Q5M PRN Chest Pain Olanzapine 5 mg 11/21/18 22:00 11/24/18 22:03 Zyprexa PO 5 mg HS RYLEY Administration Ondansetron HCl 4 mg 11/15/18 19:03 11/16/18 04:30 Zofran IV 4 mg Q8H PRN Administration Nausea And Vomiting Prazosin HCl 1 mg 11/20/18 22:00 11/24/18 22:05 Minipress PO 1 mg HS RYLEY Administration Sodium Chloride 10 ml 11/15/18 22:00 11/24/18 22:04 Sodium Chloride Flush Syringe 10 Ml IV 10 ml BID RYLEY Administration Sodium Chloride 10 ml 11/15/18 19:03 11/21/18 22:43 Sodium Chloride Flush Syringe 10 Ml IV 10 ml PRN PRN Administration LINE FLUSH
[2018-11-25] MEDS: PROzac PO SCH (09:55)
[2018-11-25] MEDS: SODIUM CHLORIDE FLUSH SYRINGE 10 ML IV SCH (10:55)
[2018-11-25] MEDS: ASPIRIN PO SCH (10:55)
[2018-11-25] MEDS: HABITROL TD SCH (10:55)
[2018-11-25] MEDS: ZITHROMAX PO SCH (10:55)
[2018-11-25] MEDS: COREG PO SCH (10:55)
--- NOTE | 2018-11-25 11:02 | Progress Note ---
Assessment and Plan /anxiety and ? psychosis? PTSD - having hallucination and paranoia, stopped steroid, consulted psych - cont Prozac 40mg po QAM depression/anxiety and Xanax 0.25mg po Q 8hours PRN anxiety - started on Zyprexa 5 mg PO HS for psychosis, and Prazosin 1 mg PO HS for PTSD symptoms. - Psych recommended inpt psych placement /Atypical Chest pain - reason fro admission - Patient with a long history of atypical chest pain, - prior extensive ischemic workup including cardiac catheterization were reportedly negative. - She declines any further ischemic cardiac workup stating that she feels too weak to walk on the treadmill, and does not like the pharmacologic stress test. Cardiology therefore recommended to manage conservatively. - placed on PPI for possible GERD / Mediastinal lymph node mass?? - noted on CT chest - incidental finding - Consulted hematology, likely reactive - will need outpt follow up - discussed with pulmonary need EBUS, which will be arranged as outpt / Palpitations - preserved Ef on 2d echo. Monitor at tele - she may benefit from outpatient event monitor if palpitations recur. /Hyponatremia, due to dehydration, resolved / hypokalemia, repleted / COPD with acute exacerbation, improved -cont nebs as needed, /Tobacco abuse, smokes 2ppd, placed on nicotine patch /Dvt Px, SCD Disposition: medically cleared. need inpt psych Brief history: 63 YO Female with [place], ?CHF, Nicotine Dependence, COPD, Medication Noncompliance presents to ED as she has experienced shortness of breath, chest palpitations, and pain in her chest over the past 1 week, with increasing frequency of symptoms over the past 2 days. She also noted hyperactive, anxious, paranoid. Psych following. Physical exam: General appearance: Present: no acute distress, well-nourished - EENT Eyes: PERRL, EOM intact ENT: hearing intact, clear oral mucosa Ears: bilateral: normal - Neck Neck: supple, normal ROM - Respiratory Respiratory effort: normal Respiratory: bilateral: diminished b/l - Cardiovascular Rhythm: regular Heart Sounds: Present: S1 & S2. Absent: gallop, rub Extremities: pulses intact, No edema, normal color, Full ROM - Gastrointestinal General gastrointestinal: Present: soft, non-tender, non-distended, normal bowel sounds - Integumentary Integumentary: clear, warm, dry - Musculoskeletal Musculoskeletal: 1, strength equal bilaterally - Neurologic Neurologic: moves all extremities - Psychiatric Psychiatric: memory intact, no appropriate mood/affect, no judgment & insight Subjective Date of service: 11/24/18 Principal diagnosis: chest LN Interval history: Patient seen and examined denies any chest pain, SOB improved, continue to be incoherent, confused sitter at bedside, waiting for placement Objective - Constitutional Vitals: Vital Signs - 12hr 11/25/18 11/25/18 11/25/18 00:18 03:01 03:10 Temperature 98.5 F Pulse Rate 82 Pulse Rate [ 88 Anterior Bilateral Throughout] Pulse Rate [ 90 Bilateral] Pulse Rate [ Right Radial] Respiratory 20 Rate Respiratory 16 Rate [Anterior Bilateral Throughout] Respiratory 12 Rate [Bilateral ] Blood Pressure 98/58 O2 Sat by Pulse 97 Oximetry 11/25/18 11/25/18 11/25/18 03:28 04:31 08:00 Temperature 98.2 F Pulse Rate 81 Pulse Rate [ 88 Anterior Bilateral Throughout] Pulse Rate [ 88 Bilateral] Pulse Rate [ Right Radial] Respiratory 20 Rate Respiratory 17 Rate [Anterior Bilateral Throughout] Respiratory 18 Rate [Bilateral ] Blood Pressure 94/57 O2 Sat by Pulse 98 100 Oximetry 11/25/18 11/25/18 09:01 09:50 Temperature Pulse Rate Pulse Rate [ Anterior Bilateral Throughout] Pulse Rate [ Bilateral] Pulse Rate [ 86 Right Radial] Respiratory 18 Rate Respiratory Rate [Anterior Bilateral Throughout] Respiratory Rate [Bilateral ] Blood Pressure O2 Sat by Pulse 100 99 Oximetry - Labs CBC & Chem 7: 11/15/18 16:00 11/16/18 10:26
[2018-11-25] MEDS: PEPCID PO SCH (11:15)
--- NOTE | 2018-11-25 12:52 | Progress Note ---
Subjective - Reason for Consult Consult date: 11/25/18 Reason for consult: Psychiatry Follow-up - Chief Complaint Chief complaint: "I am still allergic to the soap" 63 year old white female who presents to the emergency room with difficulty breathing and chest pain. She is on 1013 for psychosis. Today the patent is calm during the assessment. She stated that things haven't changed about the soap throughout the hospital. She stated that her room do not have the soap issues other room have. Her entire discussion about the soap wasn't logical. Also, she smiles inappropriately throughout the interview. She denies SI/HI's and AVH's. No indications of side effects of her medications. Mental Status Exam - Vital signs Last Vital Signs Temp 98.3 F 11/25/18 11:15 Pulse 97 H 11/25/18 11:15 Resp 18 11/25/18 11:15 BP 111/76 11/25/18 11:15 Pulse Ox 99 11/25/18 11:15 - Exam Narrative exam: MSE: Appearance: cooperative Behavior: regular eye contact Speech: hyper verbal Mood: euphoric Affect: congruent to mood Thought Process: tangential Thought Content: denies SI/HI's and AVH's, delusional, paranoid Motor Activity: sitting up in bed Cognition: A/O x3 Insight: poor Judgment: poor Assessment and Plan Impression: Unspecified Psychosis. Hx of MDD/CALLIE/PTSD. Today the patent is calm during the assessment. Recommendation/Plan: Continue 1013 and increase Zyprexa to 10 mg PO HS for psychosi, Prozac 40 mg PO dalily for depression/anxiety, Xanax 0.25 mg PO Q8hrs PRN for acute anxiety, and Prazosin 1 mg PO HS for PTSD symptoms. Discussed possible suicidality/medication induced talisha with the patient reference Prozac. Dispo: The patient was referred to inpatient psy services. Will staff with Dr Brando Langley.
[2018-11-25 16:34] VITALS: BP 107/67
== END 2018-11-25 19:30 | DRG 291 ==
LOC: ED 15:30 → 4A 19:03
PROVIDERS: ADMIT Internal Medicine; ATTEND Internal Medicine
PROC: 4A033R1 Measurement of Arterial Saturation, Peripheral, Percutaneous Approach (ICD-10-PCS; principal; 2018-11-20)
DX: I11.0 Hypertensive heart disease with heart failure (principal); I50.21 Acute systolic (congestive) heart failure; E87.1 Hypo-osmolality and hyponatremia; I24.9 Acute ischemic heart disease, unspecified; J44.1 Chronic obstructive pulmonary disease with (acute) exacerbation; F43.10 Post-traumatic stress disorder, unspecified; F22 Delusional disorders; F32.9 Major depressive disorder, single episode, unspecified; E86.0 Dehydration; E87.6 Hypokalemia; F17.210 Nicotine dependence, cigarettes, uncomplicated; R55 Syncope and collapse; F41.1 Generalized anxiety disorder; R59.1 Generalized enlarged lymph nodes; F29 Unspecified psychosis not due to a substance or known physiological condition; R07.89 Other chest pain; Z71.6 Tobacco abuse counseling; I25.2 Old myocardial infarction; Z91.14 Patient's other noncompliance with medication regimen
CPT/HCPCS: 36415; 70450; 71045; 71275; 80048; 80061; 80076; 80307; 81001; 83880; 84484; 85025; 85379; 93005; 93010; 93306; 94640; 94760; G0378; A9270-GY; J0456; J2270; J2405; J2920; J7050; J7512; Q9967

== ENCOUNTER 2019-03-26 10:15 | Emergency (ER) | payer MEDICARE ==
[2019-03-26 10:37] VITALS: BP 112/70
[2019-03-26] MEDS ORDERED: NACL 0.9% 1000 ML 1,000 ML IV ONE (12:26)
--- NOTE | 2019-03-26 12:31 | Emergency Department Report ---
ED General Adult HPI - General Chief complaint: Weakness Stated complaint: HEAT EXHAUSTION Time Seen by Provider: 03/26/19 12:21 Source: patient, EMS Mode of arrival: Wheelchair Limitations: No Limitations - History of Present Illness Initial comments: Patient is 64 years old female with history of schizophrenia, hypertension and COPD. Patient presented to the ER complaining of generalized weakness. Patient stated that she was diagnosed by [facility] as having a heat exhaustion. Patient denied any chest pain or shortness of breath. No abdominal pain, nausea or vomiting. Patient also denied any fever or chills. - Related Data Home Medications Medication Instructions Recorded Confirmed Last Taken FLUoxetine HCL [Fluoxetine HCl] 40 mg PO DAILY 11/16/18 11/16/18 Unknown Previous Rx's Medication Instructions Recorded Last Taken Type ALPRAZolam [Xanax TAB] 0.25 mg PO Q8H PRN tablet 11/21/18 Unknown Rx Aspirin EC 81 mg PO QDAY #30 tablet.dr 11/21/18 Unknown Rx AtorvaSTATin [Lipitor] 40 mg PO QHS tablet 11/21/18 Unknown Rx Carvedilol [Coreg] 3.125 mg PO BID tablet 11/21/18 Unknown Rx Nicotine [Habitrol] 21 mg TD QDAY patch 11/21/18 Unknown Rx Prazosin [Minipress] 1 mg PO HS capsule 11/21/18 Unknown Rx Allergies Allergy/AdvReac Type Severity Reaction Status Date / Time No Known Allergies Allergy Verified 03/26/19 10:16 ED Review of Systems ROS: Stated complaint: HEAT EXHAUSTION Other details as noted in HPI Comment: All other systems reviewed and negative Constitutional: denies: chills, fever Respiratory: denies: cough, orthopnea, shortness of breath, SOB with exertion, SOB at rest, wheezing Cardiovascular: denies: chest pain, palpitations, dyspnea on exertion, orthopnea Gastrointestinal: denies: abdominal pain, nausea, vomiting, diarrhea, constipation, hematemesis, melena, hematochezia Neurological: weakness ED Past Medical Hx - Past Medical History Hx Hypertension: Yes Hx Heart Attack/AMI: Yes (X2) Hx Congestive Heart Failure: Yes Hx Diabetes: No Hx Deep Vein Thrombosis: No Hx Psychiatric Treatment: Yes Hx Asthma: Yes Hx COPD: Yes Hx HIV: No Additional medical history: HARD OF HEARING - Surgical History Hx Coronary Stent: No Hx Pacemaker: No Hx Internal Defibrillator: No Additional Surgical History: HEART CATH - Social History Smoking Status: Never Smoker Substance Use Type: None - Medications Home Medications: Home Medications Medication Instructions Recorded Confirmed Last Taken Type FLUoxetine HCL [Fluoxetine HCl] 40 mg PO DAILY 11/16/18 11/16/18 Unknown History ALPRAZolam [Xanax TAB] 0.25 mg PO Q8H PRN tablet 11/21/18 Unknown Rx Aspirin EC 81 mg PO QDAY #30 tablet.dr 11/21/18 Unknown Rx AtorvaSTATin [Lipitor] 40 mg PO QHS tablet 11/21/18 Unknown Rx Carvedilol [Coreg] 3.125 mg PO BID tablet 11/21/18 Unknown Rx Nicotine [Habitrol] 21 mg TD QDAY patch 11/21/18 Unknown Rx Prazosin [Minipress] 1 mg PO HS capsule 11/21/18 Unknown Rx ED Physical Exam - General Limitations: No Limitations General appearance: alert, in no apparent distress - Head Head exam: Present: atraumatic, normocephalic, normal inspection - Eye Eye exam: Present: normal appearance, PERRL - ENT ENT exam: Present: mucous membranes dry - Neck Neck exam: Present: normal inspection, full ROM. Absent: tenderness, mening ismus, lymphadenopathy, thyromegaly - Respiratory Respiratory exam: Present: normal lung sounds bilaterally - Cardiovascular Cardiovascular Exam: Present: regular rate, normal rhythm, normal heart sounds - GI/Abdominal GI/Abdominal exam: Present: soft, normal bowel sounds. Absent: distended, tenderness, guarding, rebound, rigid, organomegaly, mass, bruit, pulsatile mass, hernia - Extremities Exam Extremities exam: Present: normal inspection, full ROM, normal capillary refill. Absent: pedal edema, calf tenderness - Back Exam Back exam: Present: normal inspection, full ROM. Absent: CVA tenderness (R), CVA tenderness (L), muscle spasm, paraspinal tenderness, vertebral tenderness - Neurological Exam Neurological exam: Present: alert, oriented X3, CN II-XII intact, normal gait, reflexes normal - Skin Skin exam: Present: warm, intact, normal color ED Course Vital Signs 03/26/19 10:36 Temperature 97.7 F Pulse Rate 79 Respiratory 18 Rate Blood Pressure 112/70 O2 Sat by Pulse 98 Oximetry ED Medical Decision Making - Lab Data Result diagrams: 03/26/19 12:31 03/26/19 12:31 - Radiology Data Radiology results: report reviewed Chest x-ray is unremarkable. - Medical Decision Making Patient is 64 years old female with history of schizophrenia, hypertension and COPD. Patient presented to the ER complaining of generalized weakness. Patient stated that she was diagnosed by [facility] as having a heat exhaustion. Patient denied any chest pain or shortness of breath. No abdominal pain, nausea or vomiting. Patient also denied any fever or chills. Patient remained stable. Vital signs stable. Labs reviewed and is unremarkable. Patient received 1 L of normal saline. No evidence of rhabdomyolysis. Neurovascular intact. Patient advised to follow-up with [facility] and to retain to the ER if symptoms are not improved. Critical care attestation.: If time is entered above; I have spent that time in minutes in the direct care of this critically ill patient, excluding procedure time. ED Disposition Clinical Impression: Weakness Disposition: DC-01 TO HOME OR SELFCARE Is pt being admited?: No Condition: Stable Instructions: Weakness (ED) Referrals: JASWINDER FULLER MD [Primary Care Provider] - 3-5 Days
[2019-03-26 12:58] LABS: Basophils % (Auto) 0.5 % (0.0-1.8); Eosinophils % (Auto) 2.3 % (0.0-4.3); Hematocrit 36.2 % (30.3-42.9); Hemoglobin 12.7 gm/dl (10.1-14.3); Lymphocytes % (Auto) 30.8 % (13.4-35.0); Mean Corpuscular HGB Conc 35 % (30-34); Mean Corpuscular Volume 92 fl (79-97); Monocytes % (Auto) 8.5 % (0.0-7.3); Platelet Count 273 K/mm3 (140-440); Red Blood Count 3.91 M/mm3 (3.65-5.03); Red Cell Distribution Width 13.8 % (13.2-15.2)
[2019-03-26 12:59] LABS: Eosinophils # (Auto) 0.1 K/mm3 (0.0-0.4); Lymphocytes # (Auto) 1.6 K/mm3 (1.2-5.4); Monocytes # (Auto) 0.5 K/mm3 (0.0-0.8)
[2019-03-26 13:18] LABS: BUN/Creatinine Ratio 10; Blood Urea Nitrogen 4 mg/dL (7-17); Calcium 9.5 mg/dL (8.4-10.2); Hemolysis Index 3
--- NOTE | 2019-03-26 13:45 | XRay Report ---
AP CHEST: HISTORY: Weakness AP view of the chest demonstrates a normal mediastinal and cardiac contour with clear lungs and normal bony and soft tissue structures. IMPRESSION: Unremarkable AP chest.
[2019-03-26 14:44] LABS: Bilirubin,Urine NEG (Negative); Blood,Urine NEG (Negative); Color,Urine Straw (Yellow); Protein,Urine <15 mg/dL mg/dL (Negative); Urobilinogen,Urine < 2.0 mg/dL (<2.0); WBC,Urine < 1.0 /HPF (0.0-6.0)
[2019-03-26 14:54] LABS: Amphetamine Screen,Urine PRESUMPTIVE NEGATIVE; Benzodiazepines Screen,Urine PRESUMPTIVE NEGATIVE; Cannabinoid Screen,Urine PRESUMPTIVE NEGATIVE; Cocaine Screen,Urine PRESUMPTIVE NEGATIVE; Methadone Screen,Urine PRESUMPTIVE NEGATIVE; Opiate Screen,Urine PRESUMPTIVE NEGATIVE
== END 2019-03-26 16:15 | disposition home or self-care (01) ==
LOC: ED 10:15
DX: R53.1 Weakness (principal); I11.0 Hypertensive heart disease with heart failure; I50.9 Heart failure, unspecified; I25.2 Old myocardial infarction; J44.9 Chronic obstructive pulmonary disease, unspecified; Z79.82 Long term (current) use of aspirin; Z79.899 Other long term (current) drug therapy
CPT/HCPCS: 36415; 71045; 80048; 80307; 81001; 82550; 84484; 85025; 99285; J7030